=== PATIENT | female | born 1970 | race Caucasian/White ===

== ENCOUNTER 2017-04-03 15:27 | Observation (INO) | payer BC ==
[~2017-04-03] VITALS: Ht 165.1 cm; Wt 90.5 kg
[~2017-04-03 15:27] MED LIST: LEVO75TA5 PO; PRAV10TA39 PO
[2017-04-03] MEDS ORDERED: ALBUTEROL 0.5% NEB SOLN 2.5 MG/0.5 ML VIAL INH ONE (15:42)
[2017-04-03] MEDS ORDERED: DEXAMETHASONE **PF** INJ 10 MG/ML VIAL PO ONE (15:45)
[2017-04-03] MEDS ORDERED: ALBUT/IPRATROP 3MG/0.5MG NEB 3 ML VIAL INH STA ×3 (15:45→18:14)
[2017-04-03 16:08] LABS: BASO % 0.4 %; BASO ABS # 0.03 K/uL (0-0.2); COMPLETE YES; EOS % 5.1 %; HEMATOCRIT 46.5 % (37-47); IG% 0.4 %; LYMPH % 20.1 %; LYMPH ABS # 1.54 K/uL (1.2-3.4); MEAN CELL VOLUME 92.4 fL (80-100); MEAN CORPUSCULAR HEMOGLOBIN 32.2 pg (25-34); MEAN CORPUSCULAR HGB CONC 34.8 g/dl (32-36); MEAN PLATELET VOLUME 9.5 fL (7.4-10.4); MONO % 11.6 %; NEUT % 62.4 %; PLATELET COUNT 234 K/uL (130-400); RED BLOOD COUNT 5.03 M/uL (4.2-5.4); WHITE BLOOD COUNT 7.67 K/uL (4.8-10.8)
--- NOTE | 2017-04-03 16:10 | DIAGNOSTIC IMAGING REPORT ---
CHEST ONE VIEW PORTABLE HISTORY: EVALUATE RESPIRATORY DISTRESS.DYSPNEA COMPARISON: Chest 03/11/2013. FINDINGS: The lungs are clear. Cardiac silhouette is normal in size. No pleural effusions. No pneumothorax. IMPRESSION: No acute process. Electronically signed by: Ambrosio Penny M.D. 04/03/2017 4:09 PM Dictated Date/Time: 04/03/2017 4:06 PM
[2017-04-03 16:26] LABS: BUN/CREATININE RATIO 13.8 (10-20); CALCIUM 9.5 mg/dl (8.5-10.1); CREATININE 0.76 mg/dl (0.60-1.20)
[2017-04-03 16:29] LABS: ALB/GLOB RATIO 1.2 (0.9-2)
[2017-04-03] MEDS ORDERED: CHN/1 PO (16:33)
--- NOTE | 2017-04-03 19:22 | EMERGENCY ROOM VISIT NOTE ---
History Report prepared by Chepe: Kevin Cowan Under the Supervision of: Dr. Tony Ritchie M.D. First contact with patient: 15:40 Chief Complaint: SHORTNESS OF BREATH Stated Complaint: HARD TO BREATH History of Present Illness The patient is a 47 year old female who presents to the Emergency Room with complaints of shortness of breath that began 45 minutes ago. She was 88% on room air. At this time, the patient was cleaning a bathroom and had mixed Bleach with Comet Cleanser. She then suddenly became short of breath with a cough and chest tightness. Pt denies LOC, headache, fevers, chills, diaphoresis , visual changes, neck pain, chest pain, nausea, vomiting, abdominal pain, back pain, melena, hematochezia, urinary symptoms, numbness, weakness, lymphadenopathy, rash, or other complaints. She denies any recent trips. She denies any family history or past medical history. She denies any known medical history. Source of History: patient Onset: 45 minutes ago Position: other (Respiratory System) Symptom Intensity: 88% on room air Quality: other (Shortness of breath) Timing: constant Associated Symptoms: + cough Note: She is experiencing chest tightness. Review of Systems See HPI for pertinent positives and negatives. A total of ten systems were reviewed and were otherwise negative. Family History Patient reports no known family medical history. Social History Smoking Status: Current Every Day Smoker Smokeless Tobacco Use: No Drug Use: none Marital Status: Occupation Status: employed Current/Historical Medications Scheduled Varenicline (Chantix), 1 MG PO DIRECTED Allergies Coded Allergies: No Known Allergies (Unverified , 04/03/17) Physical Exam Vital Signs Date Time Temp Pulse Resp B/P (MAP) Pulse Ox O2 Delivery O2 Flow Rate FiO2 04/03/17 18:30 112/73 04/03/17 18:27 84 11 96 04/03/17 18:00 112/72 04/03/17 17:57 86 13 97 04/03/17 17:30 116/76 04/03/17 17:27 95 25 98 04/03/17 17:21 147/85 04/03/17 17:00 84 107/82 98 Nebulizer 10.0 04/03/17 17:00 107/82 04/03/17 16:58 86/74 04/03/17 16:57 89 26 94 04/03/17 16:27 87 17 93 04/03/17 16:15 74 99/84 99 Nebulizer 10.0 04/03/17 16:15 99/84 04/03/17 16:05 80 04/03/17 15:57 79 18 04/03/17 15:48 91 Nasal Cannula 2.0 04/03/17 15:40 89 Room Air 04/03/17 15:40 92 Nasal Cannula 2.0 04/03/17 15:29 36.5 87 28 131/83 87 Room Air Physical Exam GENERAL: Awake, alert, dyspneic well-appearing, in mild distress HENT: Normocephalic, atraumatic. Oropharynx unremarkable. EYES: Normal conjunctiva. Sclera non-icteric. NECK: Supple. No nuchal rigidity. FROM. No JVD. RESPIRATORY: Scattered wheezes and rhonchi bilaterally. CARDIAC: Regular rate, normal rhythm. Extremities warm and well perfused. Pulses equal. ABDOMEN: Soft, non-distended. No tenderness to palpation. No rebound or guarding. No masses. RECTAL: Deferred. MUSCULOSKELETAL: Chest examination reveals no tenderness. The back is symmetrical on inspection without obvious abnormality. There is no CVA tenderness to palpation. No joint edema. LOWER EXTREMITIES: Calves are equal size bilaterally and non-tender. No edema. No discoloration. NEURO: Normal sensorium. No sensory or motor deficits noted. SKIN: No rash or jaundice noted. Medical Decision & Procedures ER Provider Diagnostic Interpretation: Radiology results as stated below per my review and radiologist interpretation: CHEST ONE VIEW PORTABLE HISTORY: EVALUATE RESPIRATORY DISTRESS.DYSPNEA COMPARISON: Chest 03/11/2013. FINDINGS: The lungs are clear. Cardiac silhouette is normal in size. No pleural effusions. No pneumothorax. IMPRESSION: No acute process. Electronically signed by: Ambrosio Penny M.D. 04/03/2017 4:09 PM Dictated Date/Time: 04/03/2017 4:06 PM Laboratory Results 04/03/17 16:00 Red Blood Count 5.03, Mean Corpuscular Volume 92.4, Mean Corpuscular Hemoglobin 32.2, Mean Corpuscular Hemoglobin Concent 34.8, Mean Platelet Volume 9.5, Neutrophils (%) (Auto) 62.4, Lymphocytes (%) (Auto) 20.1, Monocytes (%) (Auto) 11.6, Eosinophils (%) (Auto) 5.1, Basophils (%) (Auto) 0.4, Neutrophils # (Auto ) 4.79, Lymphocytes # (Auto) 1.54, Monocytes # (Auto) 0.89, Eosinophils # (Auto ) 0.39, Basophils # (Auto) 0.03 04/03/17 16:00 Test 04/03/17 16:00 White Blood Count 7.67 K/uL (4.8-10.8) Red Blood Count 5.03 M/uL (4.2-5.4) Hemoglobin 16.2 g/dL (12.0-16.0) Hematocrit 46.5 % (37-47) Mean Corpuscular Volume 92.4 fL (80-100) Mean Corpuscular Hemoglobin 32.2 pg (25-34) Mean Corpuscular Hemoglobin Concent 34.8 g/dl (32-36) Platelet Count 234 K/uL (130-400) Mean Platelet Volume 9.5 fL (7.4-10.4) Neutrophils (%) (Auto) 62.4 % Lymphocytes (%) (Auto) 20.1 % Monocytes (%) (Auto) 11.6 % Eosinophils (%) (Auto) 5.1 % Basophils (%) (Auto) 0.4 % Neutrophils # (Auto) 4.79 K/uL (1.4-6.5) Lymphocytes # (Auto) 1.54 K/uL (1.2-3.4) Monocytes # (Auto) 0.89 K/uL (0.11-0.59) Eosinophils # (Auto) 0.39 K/uL (0-0.5) Basophils # (Auto) 0.03 K/uL (0-0.2) RDW Standard Deviation 42.5 fL (36.4-46.3) RDW Coefficient of Variation 12.6 % (11.5-14.5) Immature Granulocyte % (Auto) 0.4 % Immature Granulocyte # (Auto) 0.03 K/uL (0.00-0.02) Anion Gap 10.0 mmol/L (3-11) Est Creatinine Clear Calc Drug Dose 102.8 ml/min Estimated GFR () 109.0 Estimated GFR (Non- 94.1 BUN/Creatinine Ratio 13.8 (10-20) Calcium Level 9.5 mg/dl (8.5-10.1) Total Bilirubin 0.2 mg/dl (0.2-1) Aspartate Amino Transf (AST/SGOT) 13 U/L (15-37) Alanine Aminotransferase (ALT/SGPT) 20 U/L (12-78) Alkaline Phosphatase 97 U/L (45-117) Total Protein 7.7 gm/dl (6.4-8.2) Albumin 4.1 gm/dl (3.4-5.0) Globulin 3.6 gm/dl (2.5-4.0) Albumin/Globulin Ratio 1.2 (0.9-2) Laboratory results reviewed by me Medications Administered Medications (Trade) Dose Ordered Sig/Flower Route Start Time Stop Time Status Last Admin Dose Admin Albuterol Sulfate (Ventolin 0.5% 2.5MG/0.5ML Neb) 2.5 mg STK-MED ONCE INH 04/03/17 15:42 04/03/17 15:43 DC 04/03/17 16:03 2.5 MG Albuterol/ Ipratropium (Duoneb) 3 ml NOW STAT INH 04/03/17 15:45 04/03/17 15:47 DC 04/03/17 16:02 3 ML Dexamethasone Sodium Phosphate (Dexamethasone Inj Pf) 10 mg NOW ONCE PO 04/03/17 15:45 04/03/17 15:47 DC 04/03/17 16:02 10 MG Albuterol/ Ipratropium (Duoneb) 3 ml NOW STAT INH 04/03/17 16:51 04/03/17 16:52 DC 04/03/17 16:59 3 ML Albuterol/ Ipratropium (Duoneb) 3 ml NOW STAT INH 04/03/17 18:14 04/03/17 18:15 DC 04/03/17 18:14 3 ML ECG Indication: SOB/dyspnea Rate (beats per minute): 85 Rhythm: normal sinus Findings: no acute ischemic change, no ectopy ED Course 1540: The patient was evaluated in room A9. A complete history and physical exam was performed. 1542: Ordered Albuterol Sulfate 2.5 INH 1545: Ordered Dexamethasone Sodium Phosphate 10 mg PO, DuoNeb 3 ml INH 1651: Ordered DuoNeb 3 ml INH 1720: I reassessed the patient at this time. She is feeling better. Without nasal oxygen, her oxygen saturation is 97-98% with rest. She is not wheezing after her third nebulizer treatment. 1814: The patient was reassessed and was short of breath again. She was requiring supplemental oxygen. Shortness of breath was doubling present with minimal exertion. She was given a fourth nebulizer treatment. 1909: consultation made with internal medicine. Case was discussed. Patient will be evaluated for further management. Medical Decision Triage Nursing notes reviewed. The patient's presentation and history were concerning for respiratory difficulty. Etiologies such as inhalation injury, chemical pneumonitis, pneumonia, COPD, reactive airway disease, CHF, cardiac ischemia, pulmonary embolism, pneumothorax , musculoskeletal, infections, gastrointestinal, as well as others were entertained. The patient was evaluated after arrival. She was found to be hypoxic. The patient was using several cleaning products together. MSDS review did indicate potential chlorine gas liberation. This would be consistent with her presentation. The patient was given IV steroids and multiple nebulizer treatments. She required supplemental oxygen. She was still very dyspneic. She had peak flow measurement performed and these were suboptimal. She was observed for several hours in the emergency department and was still symptomatic with minimal exertion. I discussed additional treatment in the hospital and the patient and were in agreement. Consultation was made with internal medicine for further management. Medication Reconcilliation Current Medication List: was personally reviewed by me Blood Pressure Screening Patient's blood pressure: Elevated blood pressure Blood pressure disposition: Elevated BP felt to be situational Impression Primary Impression: SOB (shortness of breath) Additional Impressions: Reactive airway disease Chlorine inhalation lung injury Scribe Attestation The scribe's documentation has been prepared under my direction and personally reviewed by me in its entirety. I confirm that the note above accurately reflects all work, treatment, procedures, and medical decision making performed by me. Departure Information Dispostion Being Evaluated By Hospitalist Referrals Tien Ta Jr,D.O. (PCP) Patient Instructions My [facility] Health Problem Qualifiers
[2017-04-03] MEDS ORDERED: MAGNESIUM HYDROXIDE SUSP 30 ML UDC PO PRN (20:30)
[2017-04-03] MEDS ORDERED: ACETAMINOPHEN 325 MG TAB PO PRN (20:30)
[2017-04-03 21:46] VITALS: BP 104/67; PULSE 82; TEMP 36.5; O2SAT 94
[2017-04-03 22:00] VITALS: BP 104/67; PULSE 82; TEMP 36.5; O2SAT 94; Ht 165.1 cm; Wt 90.5 kg
[2017-04-03] MEDS ORDERED: AZITHROMYCIN IV 500 MG in DEXTROSE 5% 250ML 250 ML IV ONE (22:00)
--- NOTE | 2017-04-03 22:36 | History and Physical ---
History & Physical Date & Time of Service: Apr 03, 2017 at 22:36 Chief Complaint: Dyspnea, Exposure To Chemical Inhalation Primary Care Physician: Tien Ta Jr,D.O. History of Present Illness Source: patient This is a 47 yo f that is presenting to us after suffering from acute onset SOB this afternoon while she was cleaning and using bleach/ comet equipment or machinery cleaner. She that when she was cleaning it was a quick onset of shortness of breath and coughing ( non prod/ no hemoptysis). She did not have any chest pain/ discomfort or nausea with the SOB however did have some diaphoresis. She then came to the ED for evaluation and was hypoxic on arrival. She was treated with duoneb x 4 and after treatment the patient had improved O2 sat and chest tightness resolved. She continued to have SOB. She has a history of smoking and exposure to second hand smoke as a child. She has no history of diagnosis of COPD/ emphysema. She has no history of asthma. PERC 1 ( O2 sat < 95%), no history of DVT/ PE Past Medical/Surgical History Smoker Family History Patient reports no known family medical history. Social History Smoking Status: Current Every Day Smoker Smokeless Tobacco Use: No Alcohol Use: none Drug Use: none Marital Status: Housing status: lives with family Occupational Status: employed Immunizations History of Influenza Vaccine: Unknown History of Tetanus Vaccine?: Unknown History of Pneumococcal: Unknown History of Hepatitis B Vaccine: Unknown Multi-Drug Resistant Organisms History of MDRO: No Allergies Coded Allergies: No Known Allergies (Unverified , 04/03/17) Home Medications Scheduled Varenicline (Chantix), 1 MG PO DIRECTED Review of Systems Constitutional: No fever Eyes: No worsening of vision ENT: No hearing loss Respiratory: + cough, + shortness of breath, + dyspnea on exertion, + dyspnea at rest, No sputum, No wheezing, No hemoptysis Cardiovascular: No chest pain Abdomen: No pain, No nausea, No vomiting, No diarrhea, No constipation Musculoskeletal: No joint pain, No muscle pain Genitourinary - Female: No dysuria Neurologic: No weakness, No numbness/tingling, No balance problems Psychiatric: No depression symptoms Endocrine: No fatigue Hematologic / Lymphatic: No abnormal bleeding/bruising Integumentary: No rash Physical Exam Vital Signs Date Time Temp Pulse Resp B/P (MAP) Pulse Ox O2 Delivery O2 Flow Rate FiO2 12/1/17 21:46 36.5 82 18 104/67 (79) 94 2.0 04/03/17 21:07 93 115/84 94 04/03/17 21:00 93 115/84 94 Nasal Cannula 2.0 04/03/17 19:30 81 105/74 96 Room Air 04/03/17 18:30 112/73 04/03/17 18:27 84 11 96 04/03/17 18:00 112/72 04/03/17 17:57 86 13 97 04/03/17 17:30 116/76 04/03/17 17:27 95 25 98 04/03/17 17:21 147/85 04/03/17 17:00 84 107/82 98 Nebulizer 10.0 04/03/17 17:00 107/82 04/03/17 16:58 86/74 04/03/17 16:57 89 26 94 04/03/17 16:27 87 17 93 04/03/17 16:15 74 99/84 99 Nebulizer 10.0 04/03/17 16:15 99/84 04/03/17 16:05 80 04/03/17 15:57 79 18 04/03/17 15:48 91 Nasal Cannula 2.0 04/03/17 15:40 89 Room Air 04/03/17 15:40 92 Nasal Cannula 2.0 04/03/17 15:29 36.5 87 28 131/83 87 Room Air General Appearance: no apparent distress, + pertinent finding (SOB) Head: normocephalic, atraumatic Eyes: normal inspection ENT: normal ENT inspection Neck: supple Respiratory/Chest: no respiratory distress, no accessory muscle use, + decreased breath sounds (bilat bases), + pertinent finding (occasional coarse breath sound noted, deep breath causing cough) Cardiovascular: regular rate, rhythm, no murmur, normal peripheral pulses Abdomen/GI: normal bowel sounds, non tender, soft Back: normal inspection, no CVA tenderness Extremities/Musculoskelatal: normal inspection, no calf tenderness, no pedal edema, normal range of motion Neurologic/Psych: alert, normal mood/affect, oriented x 3 Skin: normal color, warm/dry, no rash Lymphatic: no adenopathy Diagnostics Laboratory Results Results Past 24 Hours Test 04/03/17 16:00 04/03/17 21:39 Range/Units White Blood Count 7.67 4.8-10.8 K/uL Red Blood Count 5.03 4.2-5.4 M/uL Hemoglobin 16.2 12.0-16.0 g/dL Hematocrit 46.5 37-47 % Mean Corpuscular Volume 92.4 80-100 fL Mean Corpuscular Hemoglobin 32.2 25-34 pg Mean Corpuscular Hemoglobin Concent 34.8 32-36 g/dl Platelet Count 234 130-400 K/uL Mean Platelet Volume 9.5 7.4-10.4 fL Neutrophils (%) (Auto) 62.4 % Lymphocytes (%) (Auto) 20.1 % Monocytes (%) (Auto) 11.6 % Eosinophils (%) (Auto) 5.1 % Basophils (%) (Auto) 0.4 % Neutrophils # (Auto) 4.79 1.4-6.5 K/uL Lymphocytes # (Auto) 1.54 1.2-3.4 K/uL Monocytes # (Auto) 0.89 0.11-0.59 K/uL Eosinophils # (Auto) 0.39 0-0.5 K/uL Basophils # (Auto) 0.03 0-0.2 K/uL RDW Standard Deviation 42.5 36.4-46.3 fL RDW Coefficient of Variation 12.6 11.5-14.5 % Immature Granulocyte % (Auto) 0.4 % Immature Granulocyte # (Auto) 0.03 0.00-0.02 K/uL Sodium Level 142 136-145 mmol/L Potassium Level 4.0 3.5-5.1 mmol/L Chloride Level 108 98-107 mmol/L Carbon Dioxide Level 24 21-32 mmol/L Anion Gap 10.0 3-11 mmol/L Blood Urea Nitrogen 10 7-18 mg/dl Creatinine 0.76 0.60-1.20 mg/dl Est Creatinine Clear Calc Drug Dose 102.8 ml/min Estimated GFR () 109.0 Estimated GFR (Non- 94.1 BUN/Creatinine Ratio 13.8 10-20 Random Glucose 93 70-99 mg/dl Calcium Level 9.5 8.5-10.1 mg/dl Total Bilirubin 0.2 0.2-1 mg/dl Aspartate Amino Transf (AST/SGOT) 13 15-37 U/L Alanine Aminotransferase (ALT/SGPT) 20 12-78 U/L Alkaline Phosphatase 97 45-117 U/L Total Protein 7.7 6.4-8.2 gm/dl Albumin 4.1 3.4-5.0 gm/dl Globulin 3.6 2.5-4.0 gm/dl Albumin/Globulin Ratio 1.2 0.9-2 D-Dimer 410 0-500 ug/L FEU Diagnostic Radiology CHEST ONE VIEW PORTABLE HISTORY: EVALUATE RESPIRATORY DISTRESS.DYSPNEA COMPARISON: Chest 03/11/2013. FINDINGS: The lungs are clear. Cardiac silhouette is normal in size. No pleural effusions. No pneumothorax. IMPRESSION: No acute process. EKG Normal sinus rhythm Possible Left atrial enlargement Borderline ECG When compared with ECG of 11-MAR-2013 12:20, No significant change was found Impression Assessment and Plan This is a 47 yo f that is presenting to us with acute onset shortness of breath with a history of smoking. Patient could be suffering from a reaction to the inhalants however considering the PERC score and that 20% of COPD exacerbations without source could be secondary to PE a D Dimer was completed. Fortunately negative making it unlikely patient is suffering from PE Acute dyspnea/ hypoxic respiratory failure secondary to exposure to chemical - Med surg admission - Pulmicort BID ( did receive 10 mg of Decadron in ED) - Duoneb qid R - question an atypical PNA, cover with Azithro Smoking cessation - continue Varenecline - smoking cessation counselling - consider outpt PFT DVT prophylaxis - SCD Attending addendum: I have physically seen this patient, have supervised the medical residents activities, and agree with the H&P unless as otherwise noted. Assessment and Plan: Acute respiratory failure with hypoxia secondary to inhaled chlorinated cleaning compounds at home-- Admit to MedSurg. Advised to avoid future use of the same or similar cleaning products unless in a well ventilated area. Received Decadron 10 mg by mouth in the ED, albuterol nebulizer 1, and duonebs 3. Place on Pulmicort 0.5 mg inhaled twice a day. Duonebs every 4 hours while awake and every 2 hours when necessary. Chest x-ray suggestive of atypical process versus pneumonitis, we'll therefore place on azithromycin IV. Tobacco use disorder-- Tobacco cessation counseling Continue Varenicline. Level of Care Med/Surg Advanced Directives Existing Advance Directive: No Existing Living Will: No Existing Power of Supervisor Of Communications: No Resuscitation Status FULL RESUSCITATION VTE Prophylaxis VTE Risk Assessment Done? Y/N: Yes Risk Level: Moderate Given or contraindicated: SCD's Social Service Consult None Apply Note Total Time: Critical Care 30 - 74 minutes Additional Copies To Tien Ta Jr, D.O.
[2017-04-03 23:31] VITALS: BP 104/64; PULSE 76; TEMP 36.4; O2SAT 93
[2017-04-03] MEDS ORDERED: IV FLUIDS COMPLETED PRN (23:45)
[2017-04-04 07:33] VITALS: BP 97/60; PULSE 72; TEMP 36.6; O2SAT 97
[2017-04-04] MEDS: ALBUT/IPRATROP 3MG/0.5MG NEB 3 ML VIAL INH SCH ×3 (07:34→15:24)
[2017-04-04 07:46] VITALS: PULSE 77; O2SAT 96
[2017-04-04 08:00] VITALS: O2SAT 96
[2017-04-04] MEDS ORDERED: BUDESONIDE 90 MCG INH INH SCH ×2 (08:00)
[2017-04-04] MEDS ORDERED: VARENICLINE (CHANTIX) 1 MG TAB PO SCH (08:00)
[2017-04-04 11:37] VITALS: PULSE 77; O2SAT 98
[2017-04-04 14:24] VITALS: BP 97/60; PULSE 77; TEMP 36.6; O2SAT 98
[2017-04-04] MEDS ORDERED: PRED10TA PO (14:33)
[2017-04-04] MEDS ORDERED: VNTHFA/IN INH (14:33)
--- NOTE | 2017-04-04 14:35 | Discharge Instructions ---
Discharge Instructions Date of Service Apr 04, 2017. Admission Reason for Admission: Dyspnea, Exposure To Chemical Inhalation Discharge Discharge Diagnosis / Problem: re active air way disease with allergic spasm due to chemical exposure Discharge Goals Goal(s): Decrease discomfort Activity Recommendations Activity Limitations: resume your previous activity Lifting Limitations: none . Current Hospital Diet Patient's current hospital diet: Regular Diet Discharge Diet Recommended Diet: Regular Diet Pending Studies Studies pending at discharge: no Medical Emergencies . Who to Call and When: Medical Emergencies: If at any time you feel your situation is an emergency, please call 911 immediately. . Non-Emergent Contact Non-Emergency issues call your: Primary Care Provider, Cutting Machine Tender Helper Call Non-Emergent contact if: you have a fever, your pain is not controlled . . "Provider Documentation" section prepared by Diogenes Jeffrey. . VTE Core Measure Inpt VTE Proph given/why not?: SCD's
[2017-04-04 15:25] VITALS: PULSE 97; O2SAT 97
--- NOTE | 2017-04-04 17:02 | Discharge Summary ---
Discharge Summary Date of Service Apr 04, 2017. Discharge Summary Admission Date: Apr 03, 2017 at 20:33 Discharge Date: Apr 04, 2017 Discharge Disposition: Home Principal Diagnosis: acute hypoxic respiratory failure secondary to reactive airway disease Problems/Secondary Diagnoses: Acute hypoxic respiratory failure secondary to below Reactive airway spasm secondary to exposure to chemical Possible new diagnosis of COPD Tobacco abuse Immunizations: Have You Had Influenza Vaccine: Unknown History of Tetanus Vaccine?: Unknown History of Pneumococcal: Unknown History of Hepatitis B Vaccine: Unknown Medication Reconciliation New Medications: Albuterol Hfa (Ventolin Hfa) 200 Puffs/26317 Mcg Aers 2-4 PUFFS INH Q6H, #1 INHALER Prednisone Tab (Prednisone) 10 Mg Tab 10 MG PO BLANK for 4 Days, #10 TAB take 4 tablets day # 1 take 3 tablets day # 2 take 2 tablets day # 3 take 1 tablets day # 4 then stop Continued Medications: Varenicline (Chantix) 1 Mg Tab 1 MG PO DIRECTED Discharge Exam Review of Systems: Constitutional: No fever, No chills, No sweats, No weight loss, No weakness , No fatigue, No problem reported Eyes: No worsening of vision, No eye pain, No redness, No discharge, No diplopia, No problem reported ENT: No hearing loss, No unusual epistaxis, No nasal symptoms, No sore throat, No tinnitus, No dental problems, No trouble swallowing, No problem reported Respiratory: No cough, No sputum, No wheezing, No shortness of breath, No dyspnea on exertion, No dyspnea at rest, No hemoptysis, No problem reported Cardiovascular: No chest pain, No orthopnea, No PND, No edema, No claudication, No palpitations, No problem reported Abdomen: No pain, No nausea, No vomiting, No diarrhea, No constipation, No GI bleeding, No problem reported Musculoskeletal: No joint pain, No muscle pain, No swelling, No calf pain, No problem reported Genitourinary - Female: No dysuria, No urinary frequency, No urinary urgency , No urinary incontinence, No urinary retention, No hematuria, No dysmenorrhea, No menorrhagia, No metrorrhagia, No rash, No vaginal bleeding, No vaginal discharge, No vaginal itching, No vulvodynia, No , No problem reported Genitourinary - Male: No hematuria, No dysuria, No urinary frequency, No urinary urgency, No urinary hesitancy, No urinary retention, No urinary incontinence, No penile discharge, No lesions, No impotence, No problem reported Neurologic: No memory loss, No paralysis, No weakness, No numbness/tingling , No vertigo, No balance problems, No problem reported Psychiatric: No depression symptoms, No anhedonism, No anxiety, No insomnia , No substance abuse, No problem reported Endocrine: No fatigue, No excessive thirst, No excessive urination, No problem reported Hematologic / Lymphatic: No abnormal bleeding/bruising, No clotting problems , No swollen lymph nodes, No night sweats, No problem reported Integumentary: No rash, No itch, No new/changing skin lesions, No color change, No bleeding, No problem reported Physical Exam: General Appearance: WD/WN, no apparent distress Eyes: normal inspection, EOMI ENT: normal ENT inspection, hearing grossly normal Neck: supple Respiratory/Chest: chest non-tender, lungs clear, normal breath sounds, no respiratory distress, no accessory muscle use Cardiovascular: regular rate, rhythm, no edema, no gallop, no JVD, no murmur , normal peripheral pulses Abdomen / GI: normal bowel sounds, non tender, soft, no organomegaly, no pulsatile mass Extremities: normal inspection, no calf tenderness, normal capillary refill , no pedal edema, normal range of motion Neurologic/Psychiatric: assistant guest services manager II-XII nml as tested, no motor/sensory deficits , alert, normal mood/affect, normal reflexes, oriented x 3 Skin: normal color, warm/dry, no rash Hospital Course 47 years old female who was active smoker presented to the ED with severe shortness of breath with hypoxia after exposure to bleach fumes. Patient was admitted to telemetry giving supplemental oxygen. D-dimer was negative Chest x-ray was negative Patient was started on bronchodilators/steroids Today patient feels good, no shortness of breath Oxygen saturation on wrist and on ambulation is normal Patient wants to go home, she was instructed to follow up with landscape photographer for pulmonary function test as an outpatient and to quit smoking. Total Time Spent: Greater than 30 minutes This includes examination of the patient, discharge planning, medication reconciliation, and communication with other providers. Discharge Instructions Please refer to the electronic Patient Visit Report (Discharge Instructions) for additional information.
[2017-04-04] MEDS ORDERED: AZITHROMYCIN IV 250 MG in DEXTROSE 5% 250ML 250 ML IV SCH (20:00)
== END 2017-04-04 15:55 | disposition home or self-care (01) ==
LOC: C.EDB 15:27 → C.MS4W 20:33 → ENRESERV 20:50
PROVIDERS: ADMIT Hospitalist; ATTEND Hospitalist
DX: T59.891A Toxic effect of other specified gases, fumes and vapors, accidental (unintentional), initial encounter (principal); R06.02 Shortness of breath; X58.XXXA Exposure to other specified factors, initial encounter; J45.909 Unspecified asthma, uncomplicated; F17.210 Nicotine dependence, cigarettes, uncomplicated

== ENCOUNTER → 2017-09-05 | Outpatient (CLI) | payer OTHER ==
[~2017-09-05] MED LIST changes: +CHN/1 PO; -LEVO75TA5 PO; -PRAV10TA39 PO; +VNTHFA/IN INH
== END | disposition home or self-care (01) ==
LOC: C.LAB 08:43
DX: E78.5 Hyperlipidemia, unspecified (principal); E03.9 Hypothyroidism, unspecified

== ENCOUNTER 2019-05-14 09:12 | Inpatient (IN) ==
[2019-05-14] MEDS ORDERED: SODIUM CHLORIDE 0.9% 1000ML 1,000 ML IV ONE (09:45)
[2019-05-14] MEDS ORDERED: ONDANSETRON INJ 2 MG/ML 2 ML VIAL IV STA (09:45)
[2019-05-14 10:24] LABS: Basophils # (auto) 0.02 K/uL (0-0.2); Basophils % (auto) 0.1 %; Eosinophils % (auto) 4.1 %; Hematocrit (blood only) 47.9 % (37-47); Hemoglobin 16.9 g/dL (12.0-16.0); Immature Granulocytes # (auto) 0.09 K/uL (0.00-0.02); Immature Granulocytes % (auto) 0.6 %; Lymphocytes # (auto) 2.29 K/uL (1.2-3.4); Lymphocytes % (auto) 15.7 %; Mean Corpuscular Hemoglobin 31.3 pg (25-34); Mean Corpuscular Hgb Conc 35.3 g/dL (32-36); Mean Corpuscular Volume 88.7 fL (80-100); Mean Platelet Volume 10.2 fL (7.4-10.4); Monocytes # (auto) 0.41 K/uL (0.11-0.59); Monocytes % (auto) 2.8 %; Neutrophils # (auto) 11.19 K/uL (1.4-6.5); Neutrophils % (auto) 76.7 %; Platelet Count 291 K/uL (130-400); RDW Coefficient of Variation 12.5 % (11.5-14.5)
[2019-05-14 10:41] LABS: Albumin Level 4.1 gm/dl (3.4-5.0); BUN Creatinine Ratio 18.5 (10-20); Calcium 9.9 mg/dl (8.5-10.1); Creatinine Clr Calc Pharmacy 75.6 ml/min; Est GFR (African American) 64.5; Est GFR (Non-African American) 55.6; Potassium 3.4 mmol/L (3.5-5.1)
[2019-05-14 10:44] LABS: Albumin Globulin Ratio 1.2 (0.9-2); Bilirubin,Total 0.5 mg/dl (0.2-1); Globulin 3.5 gm/dl (2.5-4.0); Total Protein 7.6 gm/dl (6.4-8.2)
[2019-05-14 10:55] LABS: Appearance Urine Cloudy (Clear); Bacteria Urine Automated 1+ (Negative); Blood Urine Negative (Negative); Color Urine Dark Yellow; Epithelial Cell Urine Auto >30 /lpf (0-5); Glucose Urine UA Negative (Negative); Leukocyte Esterase Urine Trace (Negative); Nitrite Urine Negative (Negative); Protein Urine 1+ (Negative); Specific Gravity Urine 1.035 (1.000-1.030); Urobilinogen Urine Negative (Negative); pH Urine 6.5 (4.5-7.5)
[2019-05-14 10:58] LABS: Ketones Urine 4+ (Negative)
[2019-05-14 11:00] LABS: Bilirubin Urine Negative (Negative); Ictotest Urine Negative (Negative)
[2019-05-14 11:04] LABS: Pregnancy Test, Urine Negative (Negative)
[2019-05-14 11:18] LABS: Mucus Urine Present (None Prsent); RBC Urine Automated 0-4 /hpf (0-4)
[2019-05-14 11:22] LABS: Amphetamines+Metham, Urine Neg (Neg); Barbiturates, Urine Neg (Neg); Benzodiazepine, Urine Neg (Neg); Cocaine, Urine Neg (Neg); MDMA (Ecstacy), Urine Pos (Neg); Methadone, Urine Neg (Neg); Opiate, Urine Neg (Neg); Phencyclidine, Urine Neg (Neg)
[2019-05-14] MEDS ORDERED: IOVERSOL 100ml IV PRN (11:28)
[2019-05-14 11:36] LABS: Acetaminophen < 2 ug/ml (10-30); Salicylate < 1.7 mg/dl (2.8-20)
[2019-05-14] MEDS ORDERED: POTASSIUM CHLORIDE / WTR 10 MEQ/100 ML PLCT IV ONE (11:43)
--- NOTE | 2019-05-14 11:50 | CT Scan Report ---
HEAD CT NONCONTRAST CT DOSE: 1970.61 mGy.cm HISTORY: diffuse weakness, decreased responsiveness TECHNIQUE: Multiaxial CT images of the head were performed without the use of intravenous contrast. A utomated exposure control was utilized for this study. A dose lowering technique was utilized adheri ng to the principles of ALARA. Comparison: None. Findings: The paranasal sinuses and mastoid air cells are clear. The calvarium and skull base are int act. The ventricles and sulci are within normal limits. There is no mass, hematoma, midline shift, or acute infarct. Impression: No acute intracranial abnormality. ACT 112: Negative or not required by law. Electronically signed by: Ambrosio Penny M.D. 05/14/2019 11:49 AM
--- NOTE | 2019-05-14 11:56 | CT Scan Report ---
ABDOMEN AND PELVIS CT WITH IV CONTRAST CT DOSE: HISTORY: upper ab pain, vomiting TECHNIQUE: Multiaxial CT images of the abdomen and pelvis were performed following the use of intrave nous contrast. A dose lowering technique was utilized adhering to the principles of ALARA. COMPARISON STUDY: Abdomen and pelvis CT 07/22/2018. FINDINGS: There is a 2 mm nodule within the base of the left lower lobe on image 71. This is of doubt ful clinical significance. No pneumoperitoneum. No pneumatosis. No fractures within the visualized os seous structures. The heart is normal in size. Severe hepatic steatosis is again noted. This is not s ignificantly changed. The gallbladder, spleen, adrenal glands, pancreas, and right kidney are unremar kable. There is a 6 mm hypodense lesion within the left kidney. This is technically too small to noe acterize but favors a cyst. This has slightly increased in size compared to prior study when it measu red 4 mm. No hydronephrosis. No retroperitoneal lymphadenopathy. Abnormal thickening throughout the m ajority of the small bowel most pronounced within the jejunum with surrounding mild inflammatory millan ge. This is consistent with an enteritis. This favors an inflammatory/infectious process. Trace ascit es. The bladder is unremarkable. The uterus is surgically absent. A few colonic diverticula. No evide nce for diverticulitis. No bowel obstruction. Normal appendix. Fluid-filled colon. The major mesenter ic vessels are patent. IMPRESSION: 1. Abnormal thickening throughout the majority of the small bowel most pronounced within the jejunum with surrounding mild inflammatory change. This is consistent with an enteritis. This favors an infla mmatory/infectious process. 2. Trace ascites. 3. Normal appendix. 4. Hepatic steatosis. ACT 112: Negative or not required by law. Electronically signed by: Ambrosio Penny M.D. 05/14/2019 11:55 AM
[2019-05-14] MEDS ORDERED: SODIUM CHLORIDE 0.9% 500 ML IV SCH (12:15)
[2019-05-14] MEDS ORDERED: MoRPHine SULFATE 4 MG/ML 1 ML CARP\\VIAL IV STA (12:19)
--- NOTE | 2019-05-14 12:28 | Emergency Department Note ---
Entered by Zulay Rowe acting as a scribe for Russ Guerin MD History of Present Illness General Chief complaint: Abdominal Pain Time Seen by Provider: 05/14/19 09:33 Source: patient History of Present Illness Onset (ago): day(s) (this morning) Location: abdomen Pain Consistency: + other (episode) Current Pain Intensity: 9 Associated symptoms: + denies other symptoms (recent falls, recent head injuries), + nausea/vomiting and + other (diarrhea, numbness in extremities) The patient is a 49 year old female w/ PMHx hysterectomy, hypothyroidism, D & C, sinus surgery, endometrial ablation, GERD, colon polyps, HLD, and migraines who presents to the ED w/ CC of an episode of abdominal pain starting this morning. The patients states that last night they were finishing cleaning out their second home that they are trying to sell. He states that their son used to live in it, but their son has not talked to them since before [place] and they have not seen their granddaughter since then as well. He states that he took furniture down and when he came back to the house, she was slumped over the banister on the porch. The patients states that when he asked his friends what happened, they said that she was in her granddaughters bedroom and came out saying that she was nauseous. He states that he went over to talk to her and she just said that her stomach didnt feel well. He reports that one of their friends offered to take her down to go to bed and as soon as they did, she started vomiting. The patients reports that when he got home at 12:30 AM she was sleeping and fine. He reports that he heard her get up at 2:30 AM this morning and when she came back to bed, she said she was feeling fine besides her throat hurting from vomiting. He states that at 7 AM he woke her up to see if she wanted toast, which she said sounded good. He reports that while eating they were discussing his plans to go to [employer] and her plans to clean the house since they had company coming over. He states that when he got in the shower, he heard her vomiting again. He reports that she now had diarrhea, too. The patients states that at this time she started complaining of abdominal pain that she rated as a 9/10 in severity. He reports that she still told him to go to [place] and so he went to let the dogs out before he left. He states that when he came back in she was screaming for help. He reports that she said her extremities were numb and when he asked her to squeeze his hand, she couldnt. He states that he asked her if she wanted an ambulance and she said yes, which he reports is very unlike her. The patients states that he then laid her down on the couch and she has been the way she is now since then. He notes that she had a really bad episode of depression 6 years ago when their son did a similar thing and she had a nervous breakdown. He reports that she developed ulcers as well at that time so he is unsure if that may be what it is. The patients denies the patient having a history of strokes, recent falls, and recent head injuries. Home Medications Home Medications Medication Instructions Recorded Confirmed Type furosemide 40 mg PO QAM 07/22/18 05/14/19 History meclizine 25 mg PO TID PRN #14 tab 07/23/18 05/14/19 Rx cholecalciferol (vitamin D3) 125 5,000 units PO DAILY tab 11/24/18 05/14/19 History mcg (5,000 unit) tablet loratadine 5 mg-pseudoephedrine ER 1 tab PO DAILY tab 11/24/18 05/14/19 History 120 mg tablet,extended release,12hr bupropion HCl 150 mg 24 hr tablet, 150 mg PO QAM 12/28/18 05/14/19 History extended release fluoxetine 10 mg capsule 10 mg PO DAILY 04/21/19 05/14/19 History diclofenac sodium 1 % TOPICAL DIRECTED 05/14/19 05/14/19 History doxylamine succinate [Sleep Aid 25 mg PO HS PRN 05/14/19 05/14/19 History (doxylamine)] multivitamin 1 tab PO DAILY 05/14/19 05/14/19 History Allergies Allergy/AdvReac Type Severity Reaction Status Date / Time statin Allergy Uncoded 05/14/19 09:45 Past Med/Surg History Medical History Aching pain GERD (gastroesophageal reflux disease) History of colon polyps Hyperlipidemia no meds Hypothyroidism Migraines Nausea and vomiting after administration of anesthetic agent Sleep apnea cpap Surgical History History of bilateral tubal ligation History of colonoscopy History of dilatation and curettage History of endometrial ablation History of endoscopic sinus surgery History of hysterectomy History of wisdom tooth extraction Family History Father Family history of reaction to anesthesia nausea and vomiting Family history of diabetes mellitus Family hx of colon cancer Colorectal cancer Hypertension Mother Family history of diabetes mellitus Grandfather Stroke Other Diabetes Prostate cancer Social History Preferred Language: Telugu Communication Ability: Effective Windows Mobile Developer Required: No Beliefs That Will Affect Care: None marital status: Current Living Situation: Spouse Feels Safe at Home: Yes Smoking Status: Former smoker Second Hand Exposure: Yes (mother smoked) ; Hx Alcohol Use: Yes Alcohol type: beer, wine and hard liquor Hx Substance Use: No Review of Systems See HPI for pertinent positives & negatives. and A total of 10 systems reviewed and were otherwise negative Physical Exam Vital Signs Vital Signs - 24 hr 05/14/19 09:18 05/14/19 09:29 05/14/19 09:30 Pulse Rate 55 L 55 L 54 L Pulse Rate [Apical] Pulse Rate from SpO2 Sensor 55 L 55 L Pulse Rhythm Regular Pulse Rhythm [Apical] Pulse Strength Normal Pulse Strength [Apical] Respiratory Rate 17 19 19 Respiratory Effort / Characteristics Non-Labored Spontaneous Respiratory Depth Normal Respiratory Pattern Regular Blood Pressure 126/92 141/85 H 141/85 H Blood Pressure [Right Radial Artery] Blood Pressure Mean 97 103 107 Blood Pressure Mean [Right Radial Artery] Blood Pressure Position Lying Blood Pressure Position [Right Radial Artery] Pulse Oximetry 99 98 98 Oxygen Delivery Method Room Air Sepsis Recent Fever Within 48 Hours No Sepsis New/Unexplained Change in Mental Status No Sepsis Action Taken by Nursing No Action Required 05/14/19 09:35 05/14/19 11:00 05/14/19 11:36 Pulse Rate 55 L Pulse Rate [Apical] 64 Pulse Rate from SpO2 Sensor 56 L Pulse Rhythm Pulse Rhythm [Apical] Regular Pulse Strength Pulse Strength [Apical] Normal Respiratory Rate 12 16 Respiratory Effort / Characteristics Non-Labored Spontaneous Respiratory Depth Normal Respiratory Pattern Blood Pressure Blood Pressure [Right Radial Artery] 134/77 Blood Pressure Mean Blood Pressure Mean [Right Radial Artery] 96 Blood Pressure Position Blood Pressure Position [Right Radial Artery] Lying Pulse Oximetry 98 98 98 Oxygen Delivery Method Room Air Room Air Sepsis Recent Fever Within 48 Hours Sepsis New/Unexplained Change in Mental Status Sepsis Action Taken by Nursing GENERAL: Well nourished, non-toxic. EYE EXAM: Normal conjunctiva. PERRL, no anisocoria and EOM's grossly intact w/o pain. OROPHARYNX: Dry mucous membranes. Grossly normal dentition. NECK: Supple, no nuchal rigidity, no adenopathy, non-tender. No signs of meningismus. LUNGS: Clear to auscultation. Normal chest wall mechanics. HEART: NSR, no MRG. ABDOMEN: Abdomen soft, mild diffuse tenderness to palpation that localizes more the the upper abdomen, not peritonitic, normo-active bowel sounds, no masses, no rebound or guarding. BACK: No CVA TTP. SKIN: No rashes and no bruising. UPPER EXTREMITIES: Upper extremities are grossly normal. LOWER EXTREMITIES: No pitting edema. No calf pain. NEURO EXAM: Opens eyes to voice. Speaks softly, but understandable. Diffuse, but symmetric weakness bilateral upper extremities and lower extremities. Follows commands. Course 0938: The patient was evaluated in room A3. A complete history and physical exam was performed. 0940: Orders were placed and the patient was started on a hospital monitor at this time. 1146: I reevaluated the patient and updated her and her on her test results. Patient appears clinically improved is more awake alert conversational and looks well. No sensory deficits. I discussed the treatment plan with them. They verbally agree and understand. 1148: I discussed the patient's case with Wesley Palomares PA-C- [facility] [place] Hospitalist. He will evaluate the patient for further management under Dr. Arriaga's service. Administered Medications Potassium Chloride (K Horace / Wtr) 10 meq in 100 mls @ 100 mls/hr IV ONE ONE Stop: 05/14/19 12:42 Last Admin: 05/14/19 12:20 Dose: 100 mls/hr Documented by: [id number] Sodium Chloride (Nss) 500 mls @ 125 mls/hr IV .Q4H THOMPSON Stop: 06/13/19 12:14 Last Admin: 05/14/19 12:20 Dose: 125 mls/hr Documented by: [id number] Ioversol (Optiray 320 100ml) 93 ml IV ONCE PRN PRN Reason: Interaction Checking Stop: 05/18/19 11:27 Last Admin: 05/14/19 11:28 Dose: 93 ml Documented by: [id number] Discontinued Medications Sodium Chloride (Nss 1000ml) 1,000 mls @ 999 mls/hr IV .Q1H1M ONE Stop: 05/14/19 10:45 Last Infusion: 05/14/19 12:19 Dose: 0 mls/hr Documented by: [id number] Admin: 05/14/19 10:00 Dose: 999 mls/hr Documented by: [id number] Ondansetron HCl (Zofran) 4 mg IV NOW STA Stop: 05/14/19 09:46 Last Admin: 05/14/19 10:00 Dose: 4 mg Documented by: [id number] Medical Decision Making Differential Diagnosis Differential diagnoses includes but is not limited to gastritis, peptic ulcer disease, GERD, gallbladder disease, pancreatitis, small bowel obstruction, acute coronary syndrome, pericarditis, ischemic bowel, irritable bowel disease, irritable bowel syndrome, appendicitis, diverticulitis, malignancy, hernia, urinary tract infection, torsion, perforation, trauma, infectious, psychosomatic, conversion disorder. Medical Records Attestation: I reviewed the patient's medical records. Home Medications Current Medication List: was personally reviewed by me Laboratory Data Attestation: I reviewed the patient's lab results. Result diagrams: 05/14/19 10:03 05/14/19 10:03 Lab Results 05/14/19 05/14/19 05/14/19 Range/Units 10:03 10:03 10:03 WBC 14.60 H (4.8-10.8) K/uL RBC 5.40 (4.2-5.4) M/uL Hgb 16.9 H (12.0-16.0) g/dL Hct 47.9 H (37-47) % MCV 88.7 (80-100) fL MCH 31.3 (25-34) pg MCHC 35.3 (32-36) g/dL RDW Std Deviation 40.0 (36.4-46.3) fL RDW Coeff of Abhinav 12.5 (11.5-14.5) % Plt Count 291 (130-400) K/uL MPV 10.2 (7.4-10.4) fL Immature Gran % (Auto) 0.6 % Neut % (Auto) 76.7 % Lymph % (Auto) 15.7 % [place] % (Auto) 2.8 % Eos % (Auto) 4.1 % Baso % (Auto) 0.1 % Immature Gran # (Auto) 0.09 H (0.00-0.02) K/uL Neut # (Auto) 11.19 H (1.4-6.5) K/uL Lymph # (Auto) 2.29 (1.2-3.4) K/uL [place] # (Auto) 0.41 (0.11-0.59) K/uL Eos # (Auto) 0.60 H (0-0.5) K/uL Baso # (Auto) 0.02 (0-0.2) K/uL Sodium 141 (136-145) mmol/L Potassium 3.4 L (3.5-5.1) mmol/L Chloride 107 (98-107) mmol/L Carbon Dioxide 27 (21-32) mmol/L Anion Gap 8.0 (3-11) BUN 22 H (7-18) mg/dl Creatinine 1.16 (0.6-1.2) mg/dl Est Cr Clr Drug Dosing 75.6 ml/min Est GFR ( Amer) 64.5 Est GFR (Non-Af Amer) 55.6 BUN/Creatinine Ratio 18.5 (10-20) Glucose 170 H (70-99) mg/dl Calcium 9.9 (8.5-10.1) mg/dl Total Bilirubin 0.5 (0.2-1) mg/dl AST 21 (15-37) U/L ALT 36 (12-78) U/L Alkaline Phosphatase 121 H (45-117) U/L Total Protein 7.6 (6.4-8.2) gm/dl Albumin 4.1 (3.4-5.0) gm/dl Globulin 3.5 (2.5-4.0) gm/dl Albumin/Globulin Ratio 1.2 (0.9-2) Lipase 7804 H (73-393) U/L Urine Color Urine Appearance (Clear) Urine pH (4.5-7.5) Ur Specific [place] (1.000-1.030) Urine Protein (Negative) Urine Glucose (UA) (Negative) Urine Ketones (Negative) Urine Blood (Negative) Urine Nitrite (Negative) Urine Bilirubin (Negative) Urine Urobilinogen (Negative) Ur Leukocyte Esterase (Negative) Urine WBC (Auto) (0-5) /hpf Urine RBC (Auto) (0-4) /hpf U Hyaline Cast (Auto) (0-5) /lpf U Epithel Cells (Auto) (0-5) /lpf Urine Bacteria (Auto) (Negative) Ur Renal Epithelial Cell Urine Mucus (None Prsent) Urine Test (Negative) Salicylates < 1.7 L (2.8-20) mg/dl Urine Opiates Screen (Neg) Ur Methadone, Qual (Neg) Acetaminophen < 2 L (10-30) ug/ml Urine Barbiturates (Neg) Ur Phencyclidine (PCP) (Neg) U Amphetamin/Meth Scrn (Neg) MDMA (Ecstasy) Screen (Neg) U Benzodiazepines Scrn (Neg) Ur Cocaine Metabolite (Neg) U Marijuana (THC) Screen (Neg) Ethyl Alcohol mg/dL (0-3) mg/dl 05/14/19 05/14/19 05/14/19 Range/Units 10:09 10:35 10:35 WBC (4.8-10.8) K/uL RBC (4.2-5.4) M/uL Hgb (12.0-16.0) g/dL Hct (37-47) % MCV (80-100) fL MCH (25-34) pg MCHC (32-36) g/dL RDW Std Deviation (36.4-46.3) fL RDW Coeff of Abhinav (11.5-14.5) % Plt Count (130-400) K/uL MPV (7.4-10.4) fL Immature Gran % (Auto) % Neut % (Auto) % Lymph % (Auto) % [place] % (Auto) % Eos % (Auto) % Baso % (Auto) % Immature Gran # (Auto) (0.00-0.02) K/uL Neut # (Auto) (1.4-6.5) K/uL Lymph # (Auto) (1.2-3.4) K/uL [place] # (Auto) (0.11-0.59) K/uL Eos # (Auto) (0-0.5) K/uL Baso # (Auto) (0-0.2) K/uL Sodium (136-145) mmol/L Potassium (3.5-5.1) mmol/L Chloride (98-107) mmol/L Carbon Dioxide (21-32) mmol/L Anion Gap (3-11) BUN (7-18) mg/dl Creatinine (0.6-1.2) mg/dl Est Cr Clr Drug Dosing ml/min Est GFR ( Amer) Est GFR (Non-Af Amer) BUN/Creatinine Ratio (10-20) Glucose (70-99) mg/dl Calcium (8.5-10.1) mg/dl Total Bilirubin (0.2-1) mg/dl AST (15-37) U/L ALT (12-78) U/L Alkaline Phosphatase (45-117) U/L Total Protein (6.4-8.2) gm/dl Albumin (3.4-5.0) gm/dl Globulin (2.5-4.0) gm/dl Albumin/Globulin Ratio (0.9-2) Lipase (73-393) U/L Urine Color Dark Yellow Urine Appearance Cloudy A (Clear) Urine pH 6.5 (4.5-7.5) Ur Specific [place] 1.035 H (1.000-1.030) Urine Protein 1+ H (Negative) Urine Glucose (UA) Negative (Negative) Urine Ketones 4+ H (Negative) Urine Blood Negative (Negative) Urine Nitrite Negative (Negative) Urine Bilirubin Negative (Negative) Urine Urobilinogen Negative (Negative) Ur Leukocyte Esterase Trace H (Negative) Urine WBC (Auto) 10-30 H (0-5) /hpf Urine RBC (Auto) 0-4 (0-4) /hpf U Hyaline Cast (Auto) 1-5 (0-5) /lpf U Epithel Cells (Auto) >30 H (0-5) /lpf Urine Bacteria (Auto) 1+ H (Negative) Ur Renal Epithelial Cell Not Reportable Urine Mucus Present A (None Prsent) Urine Test Negative (Negative) Salicylates (2.8-20) mg/dl Urine Opiates Screen (Neg) Ur Methadone, Qual (Neg) Acetaminophen (10-30) ug/ml Urine Barbiturates (Neg) Ur Phencyclidine (PCP) (Neg) U Amphetamin/Meth Scrn (Neg) MDMA (Ecstasy) Screen (Neg) U Benzodiazepines Scrn (Neg) Ur Cocaine Metabolite (Neg) U Marijuana (THC) Screen (Neg) Ethyl Alcohol mg/dL < 3.0 (0-3) mg/dl 05/14/19 Range/Units 10:35 WBC (4.8-10.8) K/uL RBC (4.2-5.4) M/uL Hgb (12.0-16.0) g/dL Hct (37-47) % MCV (80-100) fL MCH (25-34) pg MCHC (32-36) g/dL RDW Std Deviation (36.4-46.3) fL RDW Coeff of Abhinav (11.5-14.5) % Plt Count (130-400) K/uL MPV (7.4-10.4) fL Immature Gran % (Auto) % Neut % (Auto) % Lymph % (Auto) % [place] % (Auto) % Eos % (Auto) % Baso % (Auto) % Immature Gran # (Auto) (0.00-0.02) K/uL Neut # (Auto) (1.4-6.5) K/uL Lymph # (Auto) (1.2-3.4) K/uL [place] # (Auto) (0.11-0.59) K/uL Eos # (Auto) (0-0.5) K/uL Baso # (Auto) (0-0.2) K/uL Sodium (136-145) mmol/L Potassium (3.5-5.1) mmol/L Chloride (98-107) mmol/L Carbon Dioxide (21-32) mmol/L Anion Gap (3-11) BUN (7-18) mg/dl Creatinine (0.6-1.2) mg/dl Est Cr Clr Drug Dosing ml/min Est GFR ( Amer) Est GFR (Non-Af Amer) BUN/Creatinine Ratio (10-20) Glucose (70-99) mg/dl Calcium (8.5-10.1) mg/dl Total Bilirubin (0.2-1) mg/dl AST (15-37) U/L ALT (12-78) U/L Alkaline Phosphatase (45-117) U/L Total Protein (6.4-8.2) gm/dl Albumin (3.4-5.0) gm/dl Globulin (2.5-4.0) gm/dl Albumin/Globulin Ratio (0.9-2) Lipase (73-393) U/L Urine Color Urine Appearance (Clear) Urine pH (4.5-7.5) Ur Specific [place] (1.000-1.030) Urine Protein (Negative) Urine Glucose (UA) (Negative) Urine Ketones (Negative) Urine Blood (Negative) Urine Nitrite (Negative) Urine Bilirubin (Negative) Urine Urobilinogen (Negative) Ur Leukocyte Esterase (Negative) Urine WBC (Auto) (0-5) /hpf Urine RBC (Auto) (0-4) /hpf U Hyaline Cast (Auto) (0-5) /lpf U Epithel Cells (Auto) (0-5) /lpf Urine Bacteria (Auto) (Negative) Ur Renal Epithelial Cell Urine Mucus (None Prsent) Urine Test (Negative) Salicylates (2.8-20) mg/dl Urine Opiates Screen Neg (Neg) Ur Methadone, Qual Neg (Neg) Acetaminophen (10-30) ug/ml Urine Barbiturates Neg (Neg) Ur Phencyclidine (PCP) Neg (Neg) U Amphetamin/Meth Scrn Neg (Neg) MDMA (Ecstasy) Screen Pos H (Neg) U Benzodiazepines Scrn Neg (Neg) Ur Cocaine Metabolite Neg (Neg) U Marijuana (THC) Screen Neg (Neg) Ethyl Alcohol mg/dL (0-3) mg/dl Imaging Data Radiologist's Impression: Radiology results as stated below per my review and the radiologist's interpretation: HEAD CT NONCONTRAST CT DOSE: 1970.61 mGy.cm HISTORY: diffuse weakness, decreased responsiveness TECHNIQUE: Multiaxial CT images of the head were performed without the use of intravenous contrast. Automated exposure control was utilized for this study. A dose lowering technique was utilized adhering to the principles of ALARA. Comparison: None. Findings: The paranasal sinuses and mastoid air cells are clear. The calvarium and skull base are intact. The ventricles and sulci are within normal limits. There is no mass, hematoma, midline shift, or acute infarct. Impression: No acute intracranial abnormality. ACT 112: Negative or not required by law. Electronically signed by: Ambrosio Penny M.D. 05/14/2019 11:49 AM ABDOMEN AND PELVIS CT WITH IV CONTRAST CT DOSE: HISTORY: upper ab pain, vomiting TECHNIQUE: Multiaxial CT images of the abdomen and pelvis were performed following the use of intravenous contrast. A dose lowering technique was utilized adhering to the principles of ALARA. COMPARISON STUDY: Abdomen and pelvis CT 07/22/2018. FINDINGS: There is a 2 mm nodule within the base of the left lower lobe on image 71. This is of doubtful clinical significance. No pneumoperitoneum. No pneumatosis. No fractures within the visualized osseous structures. The heart is normal in size. Severe hepatic steatosis is again noted. This is not significantly changed. The gallbladder, spleen, adrenal glands, pancreas, and right kidney are unremarkable. There is a 6 mm hypodense lesion within the left kidney. This is technically too small to characterize but favors a cyst. This has slightly increased in size compared to prior study when it measured 4 mm. No hydronephrosis. No retroperitoneal lymphadenopathy. Abnormal thickening throughout the majority of the small bowel most pronounced within the jejunum with surrounding mild inflammatory change. This is consistent with an enteritis. This favors an inflammatory/infectious process. Trace ascites. The bladder is unremarkable. The uterus is surgically absent. A few colonic diverticula. No evidence for diverticulitis. No bowel obstruction. Normal appendix. Fluid-filled colon. The major mesenteric vessels are patent. IMPRESSION: 1. Abnormal thickening throughout the majority of the small bowel most pronounced within the jejunum with surrounding mild inflammatory change. This is consistent with an enteritis. This favors an inflammatory/infectious process. 2. Trace ascites. 3. Normal appendix. 4. Hepatic steatosis. ACT 112: Negative or not required by law. Electronically signed by: Ambrosio Penny M.D. 05/14/2019 11:55 AM ECG Data Attestation: I personally reviewed and interpreted this ECG as follows: Indication: abdominal pain Rate (beats per minute): 57 Rhythm: sinus bradycardia Findings: + other (normal [place] nad QRS, prolonged QT, T wave flattening in V2, normal axis); no ST depression and no ST elevation Comparison ECG Date: from (07/22/2018) Change: the following changes noted (QT is more prolonged compared to prior, there is no lionger a T wave abnormality inferiorly) Blood Pressure Blood Pressure Findings: Elevated blood pressure Blood Pressure Disposition: Referred to patients primary care provider MDM Narrative The patient is a 49 year old female w/ PMHx hysterectomy, hypothyroidism, D & C, sinus surgery, endometrial ablation, GERD, colon polyps, HLD, and migraines who presents to the ED w/ CC of an episode of abdominal pain starting this morning. Patient was seen and evaluated the bedside. The patient did present with acute onset of abdominal pain. The patient's does relate that this happened similar where she had some sort of nervous breakdown. He does relate that there have been some tense issues as the son is not speaking to her currently. He believes that this may be contributory. Patient has been having some vomiting and abdominal pain. He was concerned that the patient was having some numbness and tingling. The patient is able to feel on exam and is diffusely weak but does not have a focal deficit. Patient is able to speak comprehensible sentences. Patient does have mild diffuse abdominal pain but localized more to the upper abdomen. Patient did a blood work completed on CT abdomen pelvis CT of the head. Patient was given IV fluids and nausea medications. Patient's blood work shows concern for likely pancreatitis. The patient has no prior history of this. Last alcohol use over New Year's. Patient has not had any recent procedures or trauma. Lipase is greater than 7000. Dehydrated with some hypokalemia. Additional IV fluids were ordered in addition to pain medications. No further vomiting. CT of the head negative. CT abdomen pelvis shows enteritis. I did speak the on-call hospitalist who agreed to further evaluate treat the patient. Patient was subsequently admitted to the medicine service. Impression & Plan Pancreatitis, Dehydration, Hypokalemia, Enteritis, Nausea & vomiting Discharge Plan Visit Data Chief Complaint: Abdominal Pain ED Provider: Russ Guerin Discharge Problem: Pancreatitis, Dehydration, Hypokalemia, Enteritis, Nausea & vomiting Patient Disposition: Being Evaluated by Hospitalist Forms Stand Alone Forms: Call Back Authorization, [facility] Prescriptions Prescriptions: No Action cholecalciferol (vitamin D3) 5,000 unit tablet 5,000 units PO DAILY RF: 0 Claritin-D 12 Hour 5-120 mg tablet extended release 12 hr 1 tab PO DAILY RF: 0 bupropion HCl [Wellbutrin XL] 150 mg tablet extended release 24 hr 150 mg PO QAM RF: 0 fluoxetine [Prozac] 10 mg capsule 10 mg PO DAILY RF: 0 furosemide 40 mg tablet 40 mg PO QAM RF: 0 meclizine 25 mg tablet 25 mg PO TID PRN (Reason: dizziness) Qty: 14 RF: 0 multivitamin Tablet 1 tab PO DAILY RF: 0 Sleep Aid (doxylamine) 25 mg Tablet 25 mg PO HS PRN (Reason: Insomnia) RF: 0 diclofenac sodium 1 % gel 1 % TOPICAL DIRECTED RF: 0 Referrals Referrals: Radha Ray [Primary Care Provider] - Discharge Problem: Pancreatitis Qualifiers: Chronicity: acute Pancreatitis type: unspecified pancreatitis type Acute pancreatitis complication: unspecified Qualified Code(s): K85.90 - Acute pancreatitis without necrosis or infection, unspecified Nausea & vomiting Qualifiers: Vomiting type: unspecified Vomiting Intractability: non-intractable Qualified Code(s): R11.2 - Nausea with vomiting, unspecified The scribe's documentation has been prepared under my direction and personally reviewed by me in its entirety. I confirm that the note above accurately reflects all work, treatment, procedures, and medical decision making performed by me.
[2019-05-14] MEDS: LACTATED RINGER'S 1,000 ML IV SCH ×3 (13:13→23:21)
--- NOTE | 2019-05-14 13:29 | History & Physical Report ---
Date of Service May 14, 2019 Assessment & Plan (1) Acute pancreatitis: Patient with no evidence of pancreatitis or tumor on CT scan of the abdomen Lipase is over 7000 WBC 14,000 Patient is afebrile We will start patient on lactated Ringer's at 300 mL/h Repeat labs at 1800 today then daily in the morning Clear liquid diet (2) Enteritis: Patient afebrile but has a white count of 14,000 CT scan of the abdomen shows inflammation suggesting possibility of enteritis Patient with history of some nausea and vomiting and diarrhea over the last 2 to 3 days Check a procalcitonin with next set of labs Follow serial WBC (3) Hypokalemia: Patient received 1 rider of 10 mEq in the ED We will order additional 2 riders of 10 mEq when admitted Follow serial labs (4) Dehydration: Slight elevation in creatinine and BUN We will treat acute pancreatitis with 300 mL of lactated Ringer's hourly This should address the issue with dehydration Clinically does not present as dehydrated Follow serial labs (5) Madina's thyroiditis: Continue levothyroxine Check repeat TSH with reflex T4 and compared to March Further management outpatient (6) Obstructive sleep apnea: Patient's is asked to bring in patient's CPAP machine as she does not know settings Order placed for patient to use her own machine while inpatient (7) Impaired fasting glucose: Check a hemoglobin A1c Sliding scale insulin ordered Glycemic consult for monitoring (8) Depression: Continue home dose Wellbutrin and fluoxetine Talk screen with positive MDMA -this is most likely secondary to the bupropion (9) DVT prophylaxis: We will hold on chemical prophylaxis pending acute pancreatitis Ambulate as tolerated Please refer to Dr. Orosco's addendum and corrections for further recommendations History of Present Illness Primary Care Provider: Radha Ray Attending: Dr. 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 Patient reports that she has had increased nausea and vomiting with some diarrhea over the last 2 to 3 days. Pain got to the point where is burning in her epigastric region. CT scan of the abdomen and pelvis was completed and shows inflammatory change in the small bowel. Lipase was elevated to 7000 and white blood count was 14,000 however, no evidence of pancreatic inflammation or tumor on CT scan. Patient denies any history of diverticulitis or enteral dis ease. She states that she did have a prior HIDA scan which was negative but there was concern for cholecystitis. She does not follow with a physics technician. Previous work-up was with her former primary care physician Dr. Ta. The patient denies any blood in stool or urine. She has no further fever at this time. She has no difficulty with breathing or complaints of shortness of breath. She does use her CPAP machine on a regular basis but does not know her settings. Patient has a past medical history of smoking for approximately 46-wxlm-umin history and states that she quit smoking 2 years ago. Patient drinks ethanol socially only and has no other history of substance abuse or alcohol abuse history. Aside from her abdominal pain, patient has no acute complaints. Allergies Allergy/AdvReac Type Severity Reaction Status Date / Time statin Allergy Uncoded 05/14/19 09:45 Home Medications Home Medications Medication Instructions Recorded Confirmed Type furosemide 40 mg PO QAM 07/22/18 05/14/19 History meclizine 25 mg PO TID PRN #14 tab 07/23/18 05/14/19 Rx cholecalciferol (vitamin D3) 125 5,000 units PO DAILY tab 11/24/18 05/14/19 History mcg (5,000 unit) tablet loratadine 5 mg-pseudoephedrine ER 1 tab PO DAILY tab 11/24/18 05/14/19 History 120 mg tablet,extended release,12hr bupropion HCl 150 mg 24 hr tablet, 150 mg PO QAM 12/28/18 05/14/19 History extended release fluoxetine 10 mg capsule 10 mg PO DAILY 04/21/19 05/14/19 History diclofenac sodium 1 % TOPICAL DIRECTED 05/14/19 05/14/19 History doxylamine succinate [Sleep Aid 25 mg PO HS PRN 05/14/19 05/14/19 History (doxylamine)] multivitamin 1 tab PO DAILY 05/14/19 05/14/19 History Past Med/Surg History Medical History (Updated 05/14/19 @ 13:41 by Wesley Palomares PA-C) Aching pain Depression GERD (gastroesophageal reflux disease) History of colon polyps Hyperlipidemia no meds Hypothyroidism Migraines Nausea and vomiting after administration of anesthetic agent Obstructive sleep apnea Sleep apnea cpap Surgical History (Updated 05/14/19 @ 13:28 by Wesley Palomares PA-C) History of bilateral tubal ligation History of colonoscopy History of dilatation and curettage History of endometrial ablation History of endoscopic sinus surgery History of HIDA scan Negative study 08/17/2018 History of hysterectomy History of wisdom tooth extraction Family History Father Family history of reaction to anesthesia nausea and vomiting Family history of diabetes mellitus Family hx of colon cancer Colorectal cancer Hypertension Mother Family history of diabetes mellitus Grandfather Stroke Other Diabetes Prostate cancer Social History Preferred Language: Lebanese Communication Ability: Effective Buzzle Buffer Required: No Beliefs That Will Affect Care: None marital status: Current Living Situation: Family Other Information That Helps Us Care for You: No Feels Safe at Home: No Is there a partner from a previous relationship who is making you feel unsafe now?: No Any Concerns about Your Family Situation: No Would You Like to Speak to Someone About Your Situation: No Safety Concerns: Feels Safe At This Time Smoking Status: Former smoker Do You Dip or Chew Tobacco: No ; Second Hand Exposure: No ; Tobacco Cessation Education Requested by Patient: No Hx Alcohol Use: Yes Alcohol type: beer, wine and hard liquor Hx Substance Use: No Review of Systems Review of Systems: All systems reviewed & are unremarkable except as noted in HPI & below Physical Exam Physical Exam: GENERAL : No acute distress EYES: No icterus, gaze conjugate NOSE: No evidence of epistaxis MOUTH: No lesions or candidiasis NECK: Supple LUNGS: CTA B/L, no wheezes, rales or rhonchi HEART: Regular, rate controlled ABDOMEN: Soft, ND, BS Present. Exquisite tenderness in the mid epigastric region. No rebound tenderness. Patient does have guarding on exam. EXTREMITIES: No LE edema, pedal pulses intact and equal bilaterally NEURO: A&OX3. Strength equal and appropriate upper and lower extremities. Pupils equal round and reactive to light. Tongue is midline. No facial droop. Results & Data Vital Signs (Past 12 Hours) Vital Signs Pulse Pulse Resp BP BP Pulse Ox 05/14/19 13:16 71 16 133/95 97 05/14/19 12:30 76 19 135/99 05/14/19 12:00 62 14 133/83 96 05/14/19 11:36 64 16 134/77 98 05/14/19 11:00 55 L 12 98 05/14/19 09:35 98 05/14/19 09:30 54 L 19 141/85 H 98 05/14/19 09:29 55 L 19 141/85 H 98 05/14/19 09:18 55 L 17 126/92 99 Laboratory Results 05/14/19 10:03 05/14/19 10:03 Laboratory Tests 05/14/19 10:03 Lipase 7804 H Diagnostic Findings ABDOMEN AND PELVIS CT WITH IV CONTRAST CT DOSE: HISTORY: upper ab pain, vomiting TECHNIQUE: Multiaxial CT images of the abdomen and pelvis were performed following the use of intravenous contrast. A dose lowering technique was utilized adhering to the principles of ALARA. COMPARISON STUDY: Abdomen and pelvis CT 07/22/2018. FINDINGS: There is a 2 mm nodule within the base of the left lower lobe on image 71. This is of doubtful clinical significance. No pneumoperitoneum. No pneumatosis. No fractures within the visualized osseous structures. The heart is normal in size. Severe hepatic steatosis is again noted. This is not significantly changed. The gallbladder, spleen, adrenal glands, pancreas, and r ight kidney are unremarkable. There is a 6 mm hypodense lesion within the left kidney. This is technically too small to characterize but favors a cyst. This has slightly increased in size compared to prior study when it measured 4 mm. No hydronephrosis. No retroperitoneal lymphadenopathy. Abnormal thickening throughout the majority of the small bowel most pronounced within the jejunum with surrounding mild inflammatory change. This is consistent with an enteritis. This favors an inflammatory/infectious process. Trace ascites. The bladder is unremarkable. The uterus is surgically absent. A few colonic diverticula. No evidence for diverticulitis. No bowel obstruction. Normal appendix. Fluid-filled colon. The major mesenteric vessels are patent. IMPRESSION: 1. Abnormal thickening throughout the majority of the small bowel most pronounced within the jejunum with surrounding mild inflammatory change. This is consistent with an enteritis. This favors an inflammatory/infectious process. 2. Trace ascites. 3. Normal appendix. 4. Hepatic steatosis. ACT 112: Negative or not required by law. Electronically signed by: Ambrosio Penny M.D. 05/14/2019 11:55 AM Code Status & VTE Plan Code Status Full resuscitation VTE Prophylaxis Plan VTE Prophylaxis will be ordered: No Reason for no VTE drug order: Contraindicated Supervising Physician Co-Signing Physician Notes I personally examined the patient and verified all luke points of history and exam, discussed case, and agree with decision making with La ZAZUETA Nausea vomiting abdominal pain and diarrhea. Now feeling better. Would like to eat real fooddid well with a liquid diet. No further vomiting or diarrhea, still some abdominal pain but seems to be improving. In general she is awake and alert pleasant no distress. HEENT normocephalic atraumatic mucous membranes are moist. Breathing is unlabored no accessory muscle use good effort. Abdomen is soft may be mildly distended diffuse tender but actually not that much epigastrichave to push fairly hard epigastric to elicit any tendernessseems to be more diffusely tender, but nowhere is there guarding/rebound/rigidity. Labs and diagnostics reviewed Nausea vomiting abdominal pain diarrheamother was concern on pancreatitis due to her lipase, her clinical presentation, physical exam, and CT scan are more consistent with an infectious enteritismost likely viral given the etiology/prevalence in the community at this time. Tolerating clear liquid diet, seems to be improving, advance diet as tolerated, continue fluid for dehydration and supportive care. Continue supportive care otherwise. Repeat labs in the morning, repeat exam in the morning. Lipase more than likely elevated related to vomiting and bowel wall inflammation, rather than pancreatic process (again especially given CT scan and physical exam) Otherwise as above PG Care Time/CCT Total # of Minutes Spent Total Time Spent with Patient: Total time spent is greater than 50% in coordination of care (as documented) at patient's floor/unit and/or counseling patient: 60 minutes
[2019-05-14] MEDS ORDERED: GLUCOSE 40% GEL 15 GM TUBE PO PRN (13:32)
[2019-05-14] MEDS ORDERED: CARBOHYDRATES FOR HYPOGLYCEMIA PO PRN (13:32)
[2019-05-14] MEDS ORDERED: DEXTROSE 50% 50 ML SYRINGE IV PRN (13:32)
[2019-05-14] MEDS ORDERED: GLUCOSE 10 TABS/TUBE PO PRN (13:32)
[2019-05-14] MEDS ORDERED: GLUCAGON FOR INJ 1 MG VIAL SQ PRN (13:32)
[2019-05-14] MEDS ORDERED: POTASSIUM CHLORIDE 20 MEQ in LACTATED RINGER'S 1,000 ML IV SCH (14:09)
[2019-05-14] MEDS ORDERED: PHARMACY GLYCEMIC MGMT CONSULT PRN (14:31)
[2019-05-14] MEDS: POTASSIUM CHLORIDE / WTR 10 MEQ/100 ML PLCT IV SCH ×2 (15:01→16:05)
[2019-05-14] MEDS ORDERED: HYDROmorphone INJ 0.5 MG/0.5 ML SYR IV PRN (16:00)
[2019-05-14] MEDS ORDERED: INSULIN ASPART 100 UNITS/ML 3 ML PEN SC SCH (16:30)
[2019-05-14 18:10] LABS: Basophils # (auto) 0.03 K/uL (0-0.2); Basophils % (auto) 0.2 %; Eosinophils # (auto) 0.38 K/uL (0-0.5); Eosinophils % (auto) 2.8 %; Hemoglobin 13.1 g/dL (12.0-16.0); Immature Granulocytes # (auto) 0.05 K/uL (0.00-0.02); Immature Granulocytes % (auto) 0.4 %; Lymphocytes # (auto) 3.34 K/uL (1.2-3.4); Lymphocytes % (auto) 24.6 %; Mean Corpuscular Hgb Conc 34.5 g/dL (32-36); Mean Corpuscular Volume 89.8 fL (80-100); Mean Platelet Volume 9.9 fL (7.4-10.4); Monocytes # (auto) 0.45 K/uL (0.11-0.59); Monocytes % (auto) 3.3 %; Neutrophils # (auto) 9.33 K/uL (1.4-6.5); Neutrophils % (auto) 68.7 %; Platelet Count 244 K/uL (130-400); RDW Coefficient of Variation 12.7 % (11.5-14.5); RDW Standard Deviation 41.7 fL (36.4-46.3); Red Blood Count 4.23 M/uL (4.2-5.4); White Blood Count 13.58 K/uL (4.8-10.8)
[2019-05-14 18:26] LABS: BUN Creatinine Ratio 16.2 (10-20); Calcium 8.6 mg/dl (8.5-10.1); Creatinine Clr Calc Pharmacy 89.5 ml/min; Est GFR (African American) 79.1; Est GFR (Non-African American) 68.2; Potassium 3.3 mmol/L (3.5-5.1)
[2019-05-14 18:37] LABS: Thyroid Stimulating Hormone 2.52 uIu/ml (0.300-4.500)
[2019-05-14] MEDS: ONDANSETRON INJ 2 MG/ML 2 ML VIAL IV PRN (19:50)
[2019-05-15] MEDS: LACTATED RINGER'S 1,000 ML IV SCH ×4 (05:54→20:51)
--- NOTE | 2019-05-15 05:54 | Electrocardiogram Report ---
Test Reason : Blood Pressure : / mmHG Vent. Rate : 057 BPM Atrial Rate : 057 BPM P-R Int : 120 ms QRS Dur : 092 ms QT Int : 494 ms P-R-T Axes : 079 061 065 degrees QTc Int : 480 ms Sinus bradycardia Prolonged QT Abnormal ECG When compared with ECG of 22-JUL-2018 20:30, QT has lengthened Confirmed by Shashank Aden ([id number]) on 05/15/2019 5:54:24 AM Referred By: REFERRED SELF Confirmed By:Shashank Aden
[2019-05-15] MEDS: ACETAMINOPHEN 325 MG TAB PO PRN ×2 (05:56→11:58)
[2019-05-15 06:00] LABS: Basophils # (auto) 0.04 K/uL (0-0.2); Basophils % (auto) 0.4 %; Eosinophils # (auto) 1.49 K/uL (0-0.5); Eosinophils % (auto) 14.5 %; Hematocrit (blood only) 35.7 % (37-47); Hemoglobin 12.8 g/dL (12.0-16.0); Immature Granulocytes # (auto) 0.04 K/uL (0.00-0.02); Immature Granulocytes % (auto) 0.4 %; Lymphocytes # (auto) 3.22 K/uL (1.2-3.4); Lymphocytes % (auto) 31.3 %; Mean Corpuscular Hemoglobin 32.4 pg (25-34); Mean Corpuscular Hgb Conc 35.9 g/dL (32-36); Mean Corpuscular Volume 90.4 fL (80-100); Mean Platelet Volume 9.9 fL (7.4-10.4); Monocytes # (auto) 0.45 K/uL (0.11-0.59); Monocytes % (auto) 4.4 %; Neutrophils # (auto) 5.06 K/uL (1.4-6.5); Platelet Count 219 K/uL (130-400); RDW Coefficient of Variation 12.8 % (11.5-14.5); RDW Standard Deviation 42.1 fL (36.4-46.3); Red Blood Count 3.95 M/uL (4.2-5.4)
[2019-05-15 06:30] LABS: BUN Creatinine Ratio 14.9 (10-20); Calcium 8.2 mg/dl (8.5-10.1); Creatinine Clr Calc Pharmacy 99.7 ml/min; Est GFR (Non-African American) 77.7; Potassium 3.2 mmol/L (3.5-5.1)
[2019-05-15] MEDS: BuPROPion XL 150 MG TABCR PO SCH (08:43)
[2019-05-15] MEDS: FLUOXETINE HCL 10 MG CAP PO SCH (08:43)
[2019-05-15] MEDS: CHOLECALCIFEROL 1,000 UNITS TAB PO SCH (08:43)
[2019-05-15] MEDS: POTASSIUM CHLORIDE / WTR 10 MEQ/100 ML PLCT IV SCH ×3 (08:43→11:57)
[2019-05-15] MEDS ORDERED: Nursing to Pharmacy Communication ONE (09:15)
--- NOTE | 2019-05-15 09:36 | Hospitalist Progress Note ---
Date of Service May 15, 2019 Assessment & Plan (1) Enteritis: 49 yo F with PMH [place], Depression admitted for nausea and vomiting secondary to gastroenteritis. 1) Gastroenteritis - CT showed thickening of jejunum, no pancreatic involvement. - lipase 7000 on presentation in ER however improved to normal with LR fluid repletion - WBC WNL, procal WNL - continuing to have diarrhea; WBC stool and stool culture sent 2) Hypokalemia - K 3.2; repleted with K riders x 3 given patient's nausea 3) Depression - Continue home buproprion, sertraline 4) Madina Thyroiditis - TSH 2.52; no treatment necessary at this time 5) Impaired fasting glucose - awaiting A1c - SSI DVT ppx: up to ambulation as tolerated FEN/GI: LR @150 ml/Hr, no GI ppx Diet: Carb control Code Status: Full Code Supervising Physician Co-Signing Physician Notes I personally examined the patient and verified all luke points of history and exam, discussed case, and agree with decision making with Dr La. Still feeling lousy. Has not vomited but her stomach still hurts and she was not able to eat well today. She has had several episodes of diarrhea through the day. Watery earlier, may be a little bit more formed as the days progressed. In general she is awake and alert pleasant no distress. HEENT normocephalic atraumatic mucous membranes are moist. Breathing is unlabored no accessory muscle use good effort. Abdomen is soft may be mildly distended once again diffusely tender fortunately without guarding/rebound/rigidity. Nausea vomiting abdominal pain diarrheainitially there was concern on pancreatitis due to her lipase; however, her clinical presentation, physical exam, and CT scan are more consistent with an infectious enteritismost likely viral given the etiology/prevalence in the community at this time. The fact that she is not improving does start to back the question of a bacterial overgrowth or a lingering food poisoningbut at this point time she is not showing criteria to warrant antibiotic treatment. Stool studies sent and are pending, ongoing serial exams supportive care fluids and vigilance. Otherwise as above Subjective 49 yo F admitted last night for nausea, vomiting, diarrhea secondary to likely viral gastroenteritis. Has been experiencing diarrhea for the past week, denies any hematochezia, hematemesis, abnormal or new foods prior to admission. Appetite is poor however is able to somewhat keep down PO fluids and food. Review of Systems Constitutional: no fever, no chills, no body aches and no fatigue Respiratory: no cough and no dyspnea Cardiovascular: no chest pain, no dyspnea and no edema Gastrointestinal: + abdominal pain, + nausea, + vomiting and + diarrhea/loose stools; no constipation Genitourinary: no dysuria Physical Exam Constitutional: + ill appearing and cooperative; no acute distress Neck: normal visual inspection Respiratory: normal respiratory effort and able to speak in complete sentences; no respiratory distress, no labored breathing, no retractions, no cough and no audible wheezes Auscultation: lungs clear to auscultation bilaterally; no crackles, no rales, no rhonchi and no wheezes Cardiovascular: Rate/Rhythm: regular rate and regular rhythm Heart Sounds: normal S1 and normal S2; no gallop, no murmur and no cardiac rub Vessels: posterior tibial pulses present Extremities: no pedal edema and no edema Gastrointestinal (Abdomen): Inspection/Auscultation: abdomen normal to inspection and + hypoactive bowel sounds; abdomen not distended Percussion/Palpation: + abdomen tender and abdomen soft; no guarding, abdomen not rigid and no abdominal mass Tender to palpation in RUQ/RLQ. No tenderness at mcBurney's point. No single focal point of tenderness. Results & Data Vital Signs (Past 12 Hours) Vital Signs Temp Pulse Resp BP Pulse Ox 05/15/19 07:22 36.8 C 72 18 104/71 97 05/14/19 23:25 36.5 C 66 16 125/71 95 05/15/19 05/15/19 05/15/19 Range/Units 05:12 05:12 05:12 WBC 10.30 (4.8-10.8) K/uL RBC 3.95 L (4.2-5.4) M/uL Hgb 12.8 (12.0-16.0) g/dL Hct 35.7 L (37-47) % MCV 90.4 (80-100) fL MCH 32.4 (25-34) pg MCHC 35.9 (32-36) g/dL RDW Std Deviation 42.1 (36.4-46.3) fL RDW Coeff of Abhinav 12.8 (11.5-14.5) % Plt Count 219 (130-400) K/uL MPV 9.9 (7.4-10.4) fL Immature Gran % (Auto) 0.4 % Neut % (Auto) 49.0 % Lymph % (Auto) 31.3 % [place] % (Auto) 4.4 % Eos % (Auto) 14.5 % Baso % (Auto) 0.4 % Immature Gran # (Auto) 0.04 H (0.00-0.02) K/uL Neut # (Auto) 5.06 (1.4-6.5) K/uL Lymph # (Auto) 3.22 (1.2-3.4) K/uL [place] # (Auto) 0.45 (0.11-0.59) K/uL Eos # (Auto) 1.49 H (0-0.5) K/uL Baso # (Auto) 0.04 (0-0.2) K/uL Sodium 143 (136-145) mmol/L Potassium 3.2 L (3.5-5.1) mmol/L Chloride 112 H (98-107) mmol/L Carbon Dioxide 28 (21-32) mmol/L Anion Gap 3.0 (3-11) BUN 13 (7-18) mg/dl Creatinine 0.88 (0.6-1.2) mg/dl Est Cr Clr Drug Dosing 99.7 ml/min Est GFR ( Amer) 90.0 Est GFR (Non-Af Amer) 77.7 BUN/Creatinine Ratio 14.9 (10-20) Glucose 87 (70-99) mg/dl Estimat Average Glucose Pending Hemoglobin A1c Pending Calcium 8.2 L (8.5-10.1) mg/dl Triglycerides 117 (0-150) mg/dl Cholesterol 182 (0-200) mg/dl LDL Cholesterol, Calc 121 mg/dl VLDL Cholesterol, Calc 23 mg/dl HDL Cholesterol 38 mg/dl Cholesterol/HDL Ratio 5 Lipase 335 (73-393) U/L TSH (0.300-4.500) uIu/ml 05/14/19 05/14/19 Range/Units 17:48 17:48 WBC 13.58 H (4.8-10.8) K/uL RBC 4.23 (4.2-5.4) M/uL Hgb 13.1 D (12.0-16.0) g/dL Hct 38.0 (37-47) % MCV 89.8 (80-100) fL MCH 31.0 (25-34) pg MCHC 34.5 (32-36) g/dL RDW Std Deviation 41.7 (36.4-46.3) fL RDW Coeff of Abhinav 12.7 (11.5-14.5) % Plt Count 244 (130-400) K/uL MPV 9.9 (7.4-10.4) fL Immature Gran % (Auto) 0.4 % Neut % (Auto) 68.7 % Lymph % (Auto) 24.6 % [place] % (Auto) 3.3 % Eos % (Auto) 2.8 % Baso % (Auto) 0.2 % Immature Gran # (Auto) 0.05 H (0.00-0.02) K/uL Neut # (Auto) 9.33 H (1.4-6.5) K/uL Lymph # (Auto) 3.34 (1.2-3.4) K/uL [place] # (Auto) 0.45 (0.11-0.59) K/uL Eos # (Auto) 0.38 (0-0.5) K/uL Baso # (Auto) 0.03 (0-0.2) K/uL Sodium 142 (136-145) mmol/L Potassium 3.3 L (3.5-5.1) mmol/L Chloride 110 H (98-107) mmol/L Carbon Dioxide 29 (21-32) mmol/L Anion Gap 4.0 (3-11) BUN 16 (7-18) mg/dl Creatinine 0.98 (0.6-1.2) mg/dl Est Cr Clr Drug Dosing 89.5 ml/min Est GFR ( Amer) 79.1 Est GFR (Non-Af Amer) 68.2 BUN/Creatinine Ratio 16.2 (10-20) Glucose 115 H (70-99) mg/dl Estimat Average Glucose Hemoglobin A1c Calcium 8.6 (8.5-10.1) mg/dl Triglycerides (0-150) mg/dl Cholesterol (0-200) mg/dl LDL Cholesterol, Calc mg/dl VLDL Cholesterol, Calc mg/dl HDL Cholesterol mg/dl Cholesterol/HDL Ratio Lipase (73-393) U/L TSH 2.520 (0.300-4.500) uIu/ml Resident Activity Tracking Resident Involvement: Resident Care Provided Care Provided: Adult Hospital Medicine
[2019-05-15] MEDS: ONDANSETRON INJ 2 MG/ML 2 ML VIAL IV PRN (13:20)
--- NOTE | 2019-05-15 18:25 | Billing Data ---
Date of Service May 15, 2019 Coding Level of Care Code 06494 Subseq Hosp Care Lvl 3
[2019-05-16] MEDS: LACTATED RINGER'S 1,000 ML IV SCH ×2 (03:49→11:03)
[2019-05-16 06:15] LABS: Estimated Average Glucose 114 mg/dl; Hemoglobin A1C 5.6 % (4.5-5.6)
[2019-05-16 06:23] LABS: Basophils # (auto) 0.03 K/uL (0-0.2); Basophils % (auto) 0.4 %; Eosinophils # (auto) 1.37 K/uL (0-0.5); Eosinophils % (auto) 16.4 %; Hemoglobin 12.4 g/dL (12.0-16.0); Immature Granulocytes # (auto) 0.06 K/uL (0.00-0.02); Immature Granulocytes % (auto) 0.7 %; Lymphocytes # (auto) 2.81 K/uL (1.2-3.4); Lymphocytes % (auto) 33.6 %; Mean Corpuscular Hemoglobin 31.2 pg (25-34); Mean Corpuscular Hgb Conc 34.4 g/dL (32-36); Mean Corpuscular Volume 90.7 fL (80-100); Monocytes # (auto) 0.42 K/uL (0.11-0.59); Neutrophils # (auto) 3.67 K/uL (1.4-6.5); Neutrophils % (auto) 43.9 %; Platelet Count 211 K/uL (130-400); RDW Coefficient of Variation 12.7 % (11.5-14.5); RDW Standard Deviation 42.1 fL (36.4-46.3); Red Blood Count 3.97 M/uL (4.2-5.4); White Blood Count 8.36 K/uL (4.8-10.8)
[2019-05-16 06:59] LABS: BUN Creatinine Ratio 12.6 (10-20); Calcium 8.7 mg/dl (8.5-10.1); Creatinine Clr Calc Pharmacy 99.7 ml/min; Est GFR (Non-African American) 77.7; Potassium 3.5 mmol/L (3.5-5.1)
[2019-05-16] MEDS: FLUOXETINE HCL 10 MG CAP PO SCH (08:45)
[2019-05-16] MEDS: BuPROPion XL 150 MG TABCR PO SCH (08:45)
[2019-05-16] MEDS: CHOLECALCIFEROL 1,000 UNITS TAB PO SCH (08:46)
[2019-05-16] MEDS: ONDANSETRON INJ 2 MG/ML 2 ML VIAL IV PRN (12:56)
--- NOTE | 2019-05-16 15:09 | Discharge Summary ---
Date of Service May 16, 2019 Admission HPI Per Admitting Provider Attending: Dr. 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 Patient reports that she has had increased nausea and vomiting with some diarrhea over the last 2 to 3 days. Pain got to the point where is burning in her epigastric region. CT scan of the abdomen and pelvis was completed and shows inflammatory change in the small bowel. Lipase was elevated to 7000 and white blood count was 14,000 however, no evidence of pancreatic inflammation or tumor on CT scan. Patient denies any history of diverticulitis or enteral disease. She states that she did have a prior HIDA scan which was negative but there was concern for cholecystitis. She does not follow with a manager ed. Previous work-up was with her former primary care physician Dr. Ta. The patient denies any blood in stool or urine. She has no further fever at this time. She has no difficulty with breathing or complaints of shortness of breath. She does use her CPAP machine on a regular basis but does not know her settings. Patient has a past medical history of smoking for approximately [id number] history and states that she quit smoking 2 years ago. Patient drinks ethanol socially only and has no other history of substance abuse or alcohol abuse history. Aside from her abdominal pain, patient has no acute complaints. Admission Exam Per Admitting Provider GENERAL : No acute distress EYES: No icterus, gaze conjugate NOSE: No evidence of epistaxis MOUTH: No lesions or candidiasis NECK: Supple LUNGS: CTA B/L, no wheezes, rales or rhonchi HEART: Regular, rate controlled ABDOMEN: Soft, ND, BS Present. Exquisite tenderness in the mid epigastric region. No rebound tenderness. Patient does have guarding on exam. EXTREMITIES: No LE edema, pedal pulses intact and equal bilaterally NEURO: A&OX3. Strength equal and appropriate upper and lower extremities. Pupils equal round and reactive to light. Tongue is midline. No facial droop. Principal Diagnosis Viral Gastroenteritis Discharge Exam Constitutional WD/WN, vitals as above + obese and cooperative Eyes PERRL, conjunctivae normal, anicteric sclerae ENMT external ear and nose normal, oropharynx normal Neck normal visual inspection and trachea midline Respiratory normal respiratory effort, lungs clear to auscultation no cough Cardiovascular RRR, no murmur, no edema Heart Sounds: normal S1 and normal S2 Gastrointestinal (Abdomen) Inspection/Auscultation: abdomen normal to inspection and normal bowel sounds; abdomen not distended Percussion/Palpation: + abdomen tender (epigastrum) and abdomen soft; no guarding, no hepatomegaly, no splenomegaly and no abdominal mass Skin no rashes, warm and dry Neurologic No focal deficits Psychiatric A+Ox3, euthymic affect Discharge Data Allergies Allergy/AdvReac Type Severity Reaction Status Date / Time statin Allergy Uncoded 05/14/19 09:45 Consultations 05/14/19 11:48 ED Decision to Admit Stat Ordered Studies 05/14/19 09:45 CT abd pelvis IV con only Stat CT head/brain wo con Stat Hospital Course (1) Enteritis: Mrs. Garay is a 49 yo F with PMHx of gallbladder inflammation admitted for evaluation of nausea/vomiting and diarrhea thought to be secondary to a viral gastroenteritis. 1) Viral Gastroenteritis Mrs. Garay's WBC was elevated to 14 and her lipase level was elevated to 7808 on admission, thus her GI distress was initially thought to be due to pancreatitis. However, with fluid resuscitation, her lipase level quickly normalized. CT scan of abdomen and pelvis showed thickening of jejunum consistent with inflammatory state, without pancreatic inflammation/masses or gallbladder stones/inflammation. Procalcitonin was normal throughout hospital stay, and stool studies were negative for bacterial pathogens. Her WBC normalized on day of discharge and she demonstrated ability to tolerate PO intake. She was still experiencing diarrhea and nausea on day of discharge, but no longer vomiting. She was advised to maintain oral hydration and progress her diet as tolerated. [facility] paperwork completed per patient's employer request. No further work-up recommended. 2) Hypokalemia K level was 3.2 on admission; repleted and normalized to 3.5 on day of discharge. No further evaluation recommended. Total Time Total Time Spent Total Time Spent (In Minutes): see attending attestation Discharge Plan Discharge Items Patient Disposition: Home - Self-Care Reason For Visit: Gastroenteritis Discharge Diagnosis: Viral Gastroenteritis Condition on Discharge: Good Activity: Resume your previous activity Non-emergency contact: Primary Care Provider Call non-emergency contact if: you have any medication questions Follow-up/Referrals: Radha Ray [Primary Care Provider] - Diet: Regular Addtl Attending Provider Instructions: You were hospitalized for gastrointestinal distress, thought to be due to a viral infection of your GI tract. A cat scan of your abdomen was done, which showed inflammation of the small intestine. There was some initial concern for pancreatitis, but cat scan showed no involvement of the pancreas. You were treated with IV fluids to replace volume you lost from diarrhea and vomiting. Your potassium level was found to low during your hospitalization, but we supplemented this during your hospital stay. On the day of discharge, your level normalized. [facility] paperwork was completed per your request. You are medically cleared to return to work on the next business day. Your diarrhea may persist past your discharge - this is not unusual for a viral infection (your stool was tested for bacteria, but failed to show growth). Please make an effort to stay hydrated, as prolonged diarrhea can cause dehydration. A perscription of anti- nausea medication known as zofran was called into your pharmacy - you may continue to use this as needed after your discharge. Pending Studies at Discharge: No Stand-Alone Forms: Call Back Authorization, [facility], Smoking Cessation Medications and DC Order Prescriptions: Continued cholecalciferol (vitamin D3) 5,000 unit tablet 5,000 units PO DAILY RF: 0 loratadine-pseudoephedrine 5-120 mg tablet extended release 12 hr 1 tab PO DAILY RF: 0 bupropion HCl [Wellbutrin XL] 150 mg tablet extended release 24 hr 150 mg PO QAM RF: 0 fluoxetine [Prozac] 10 mg capsule 10 mg PO DAILY RF: 0 furosemide 40 mg tablet 40 mg PO QAM RF: 0 meclizine 25 mg tablet 25 mg PO TID PRN (Reason: dizziness) Qty: 14 RF: 0 multivitamin Tablet 1 tab PO DAILY RF: 0 Sleep Aid (doxylamine) 25 mg Tablet 25 mg PO HS PRN (Reason: Insomnia) RF: 0 diclofenac sodium 1 % gel 1 % TOPICAL DIRECTED RF: 0 Discharge Orders: Discharge Order (Routine); Ordered 05/16/19 Ordered By: Emili Shaikh Admission Data Admit Date/Time: 05/14/19 12:50 Attending Provider: Kamala Billy Admit Provider: Gt Arriaga Primary Care Provider: Radha Ray Other Providers: Gt Arriaga ; Christie La Other Interventions: Discharge Summary Assessment (RN) Last Done: 05/16/19 14:56 DC Date/Time DO NOT enter until pt leaves facility: 05/16/19 15:45 Supervising Physician Co-Signing Physician Notes Resident Physician Supervision Note: I independently interviewed and examined the patient and verified the luke history and physical, reviewed labs and image studies, discussed the case with the resident Dr. Shaikh and agree with the findings and care plan. Resident Activity Tracking Resident Involvement: Resident Care Provided Care Provided: Adult Hospital Medicine
[2019-05-18 17:58] LABS: MDA negative; MDEA negative; MDMA (Ecstasy) Urine, Confirm negative
== END 2019-05-16 15:45 | disposition home or self-care (01) | DRG 392 ==
LOC: ED 09:12 → SUATTDRO 12:50 → 4W 12:50

== ENCOUNTER 2019-06-03 11:34 | Inpatient (IN) ==
[2019-06-03] MEDS ORDERED: DiphenhydrAMINE HCL 50 MG/ML VIAL IV STA (12:07)
[2019-06-03] MEDS ORDERED: ONDANSETRON INJ 2 MG/ML 2 ML VIAL IV STA (12:07)
[2019-06-03] MEDS ORDERED: KETOROLAC TROMETHAMINE 15 MG/ML VIAL IV STA (12:07)
[2019-06-03] MEDS ORDERED: HYDROmorphone INJ 0.5 MG/0.5 ML SYR IV PRN ×2 (12:07→15:03)
[2019-06-03] MEDS ORDERED: SODIUM CHLORIDE 0.9% 1000ML 1,000 ML IV ONE (12:07)
[2019-06-03 12:29] LABS: Basophils # (auto) 0.04 K/uL (0-0.2); Basophils % (auto) 0.5 %; Eosinophils # (auto) 1.08 K/uL (0-0.5); Eosinophils % (auto) 12.9 %; Hematocrit (blood only) 49.6 % (37-47); Immature Granulocytes # (auto) 0.03 K/uL (0.00-0.02); Immature Granulocytes % (auto) 0.4 %; Lymphocytes # (auto) 2.85 K/uL (1.2-3.4); Lymphocytes % (auto) 34.1 %; Mean Corpuscular Hgb Conc 34.3 g/dL (32-36); Mean Corpuscular Volume 90.5 fL (80-100); Mean Platelet Volume 9.7 fL (7.4-10.4); Monocytes # (auto) 0.36 K/uL (0.11-0.59); Monocytes % (auto) 4.3 %; Neutrophils # (auto) 3.99 K/uL (1.4-6.5); Neutrophils % (auto) 47.8 %; Platelet Count 339 K/uL (130-400); RDW Coefficient of Variation 12.9 % (11.5-14.5); RDW Standard Deviation 42.6 fL (36.4-46.3); Red Blood Count 5.48 M/uL (4.2-5.4); White Blood Count 8.35 K/uL (4.8-10.8)
--- NOTE | 2019-06-03 12:36 | XRay Report ---
XR chest 1V portable CLINICAL HISTORY: Epigastric pain COMPARISON STUDY: 07/22/2018 FINDINGS: The cardiac and mediastinal contours are normal. There is no evidence of focal pulmonary co nsolidation. There is no evidence of failure. No pleural effusions are visualized.[No free intraperit conn air is visualized IMPRESSION: No active disease in the chest. ACT 112: Negative or not required by law. Electronically signed by: Wero Ortega M.D. 06/03/2019 12:34 PM
[2019-06-03 12:48] LABS: Alanine Aminotransferase 46 U/L (12-78); Albumin Level 4.2 gm/dl (3.4-5.0); Aspartate Aminotransferase 25 U/L (15-37); BUN Creatinine Ratio 13.1 (10-20); Blood Urea Nitrogen 16 mg/dl (7-18); Calcium 9.9 mg/dl (8.5-10.1); Carbon Dioxide 30 mmol/L (21-32); Chloride 105 mmol/L (98-107); Est GFR (African American) 61.3; Est GFR (Non-African American) 52.9; Glucose 126 mg/dl (70-99); Magnesium 2.2 mg/dl (1.8-2.4); Potassium 3.7 mmol/L (3.5-5.1); Sodium 140 mmol/L (136-145)
[2019-06-03 12:53] LABS: Albumin Globulin Ratio 1.1 (0.9-2); Alkaline Phosphatase 132 U/L (45-117); Bilirubin,Total 0.4 mg/dl (0.2-1); Globulin 3.9 gm/dl (2.5-4.0); Lipase 4569 U/L (73-393); Total Protein 8.1 gm/dl (6.4-8.2); Troponin I < 0.015 ng/ml (0-0.045)
--- NOTE | 2019-06-03 13:33 | History & Physical Report ---
Date of Service June 03, 2019 Assessment & Plan (1) Acute pancreatitis: - Admit to med surg - Lipase is elevated at 4569 upon admission, Alk phos = 132 - Lactated ringers at 250 ml/hr x 1 day - NPO except meds with sips/chips - Pain management with dilaudid IV 0.5 mg Q3H prn, tylenol - Trend lipase and LFT with am labs - GI consulted - Dr. Giraldo, discussed with Nona Patten over the phone, can possibly do a repeat HIDA scan. Pt will need an EUS 6wks after discharge as long as no other acute pancreatitis flares. (2) Madina's thyroiditis: - Followed with Dr. Palacios as outpatient (3) Obesity (BMI 30-39.9): - BMI of 31.9, encourage diet and exercise as outpatient - Pt does not watch diet or limit the amount of carbs/sugar. Would recommend this based on fatty liver as seen on imaging. (4) GERD (gastroesophageal reflux disease): - Stable, will need EUS as outpatient after 6wks so inflammation is reduced (5) Hypothyroidism: - Follows with Dr. Graff as outpatient. (6) Depression: - Continue Wellbutrin, Prozac (7) Obstructive sleep apnea: - Continue CPAP (8) CLOVIS (acute kidney injury): - Cr. elevated at 1.21 where baseline is typically 0.8-0.9. - LR as above will help to resolve this. Avoid other nephrotoxins. (9) Hyperglycemia: - Glucose mildly elevated at 126, last a1c completed this month was 5.6 - Monitor with am BMP, likely secondary to pancreatitis. (10) DVT prophylaxis: -teds, ambulatory CODE: FULL Dispo: From home, likely to remain in the hospital x 1 day. History of Present Illness Primary Care Provider: Radha Ray This is a 49 yo F with PMHx of hyperlipidemia, fatty liver, hypothyroidism, GERD, CAMRON on cpap, Madina's thyroiditis, hypothyroidism and remote history of smoking who presents with similar symptoms from most recent admission on 05/14/19 where she was diagnosed with acute pancreatitis as well as a possible bowel enteritis. The patient ate breakfast this morning(toast) and then approximately 30 minutes later developed nausea, vomiting, significant upper abdominal pain, and felt that she should come to the ER. She admits to having diarrhea, ~4-6 BMs daily, but reports this is been going on even prior to her last admission, it has not improved since she left the hospital last time. She denies BRBPR, no hematochezia, dark or tarry stools. She eats a wide variety of foods in her diet and does not limit fatty or sugary foods. She also notes her menopausal hot flashes have seemed to make her abdominal complaints worse. Whenever she has a hot flash, it is followed by abdominal cramping and pain. Her spouse is present with her at bedside and reports that he would like [facility] team to see the patient during this admission as he has had good experiences with [facility] team in the past. The patient had a HIDA scan conducted last August 2018 which showed reduced ejection fraction equal to 19%. Gallbladder ultrasound conducted today is negative for choledocholithiasis, she has been taking all her regularly scheduled medications as directed, without any recent changes. Lipase is elevated at 4569 upon admission, Alk phos = 132, Cr. elevated at 1.21 where baseline is typically 0.8-0.9. Glucose mildly elevated at 126. Allergies Allergy/AdvReac Type Severity Reaction Status Date / Time statin Allergy Mild myalgias Uncoded 06/03/19 14:03 Home Medications Home Medications Medication Instructions Recorded Confirmed Type furosemide 40 mg PO QAM 07/22/18 06/03/19 History cholecalciferol (vitamin D3) 125 5,000 units PO QAM tab 11/24/18 06/03/19 History mcg (5,000 unit) tablet loratadine 5 mg-pseudoephedrine ER 1 tab PO QAM tab 11/24/18 06/03/19 History 120 mg tablet,extended release,12hr fluoxetine 10 mg capsule 10 mg PO QAM 04/21/19 06/03/19 History diclofenac sodium 1 % TOPICAL QID 05/14/19 06/03/19 History multivitamin 1 tab PO QAM 05/14/19 06/03/19 History bupropion HCl 300 mg 24 hr tablet, 300 mg PO QAM 05/23/19 06/03/19 History extended release diphenhydramine 25 1 tab PO HS tab 05/23/19 06/03/19 History mg-acetaminophen 500 mg tablet famotidine [Pepcid AC] 20 mg PO QAM 06/03/19 06/03/19 History Past Med/Surg History Medical History Aching pain Depression GERD (gastroesophageal reflux disease) History of colon polyps Hyperlipidemia no meds Hypothyroidism Migraines Nausea and vomiting after administration of anesthetic agent Obstructive sleep apnea Sleep apnea cpap Surgical History History of bilateral tubal ligation History of colonoscopy History of dilatation and curettage History of endometrial ablation History of endoscopic sinus surgery History of HIDA scan Negative study 08/17/2018 History of hysterectomy History of wisdom tooth extraction Family History Father Family history of reaction to anesthesia nausea and vomiting Family history of diabetes mellitus Family hx of colon cancer Colorectal cancer Hypertension Mother Family history of diabetes mellitus Grandfather Stroke Other Diabetes Prostate cancer Social History Preferred Language: Korean Communication Ability: Effective 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 Required: No Beliefs That Will Affect Care: None marital status: Current Living Situation: Family Other Information That Helps Us Care for You: No Feels Safe at Home: Yes Safety Concerns: Feels Safe At This Time Smoking Status: Former smoker Do You Dip or Chew Tobacco: No ; Second Hand Exposure: No ; Tobacco Cessation Education Requested by Patient: No Hx Alcohol Use: Yes Alcohol type: beer, wine and hard liquor Hx Substance Use: No Review of Systems Review of Systems: Constitutional: No fever, sweats or chills Eyes: No diplopia, no worsening or blurred vision ENT: normal hearing, no trouble swallowing Respiratory: No cough, sputum, dyspnea at rest or on exertion Cardiovascular: No chest pain, tightness or palpitations Abdomen: As per HPI. + Currently no pain, nausea, vomiting. + diarrhea Musculoskeletal: No joint pain, calf pain, swelling Neurologic: No weakness, numbness/tingling, or balance problems Psychiatric: No anxiety or depression Skin: No rash or itch Physical Exam Physical Exam: General: awake, alert, no apparent distress, + obese Head: Normocephalic, atraumatic ENT: PERRL, EOMI, no pharyngeal exudate, mucous membranes moist Chest: Clear to auscultation, on room air, no adventitious breath sounds Cardiac: Regular rate and rhythm, no murmur, no JVD, normal peripheral pulses, good capillary refill Abdominal: NABS x 4 quadrants, soft, nondistended, nontender to palpation, no rebound, guarding or tenderness Extremities: Normal inspection, no peripheral edema or erythema, calfs nontender to palpation Psych: Normal mood and affect Neuro: AAO x 3, no gross motor deficits, speech is clear, no peripheral sensory deficits Results & Data Vital Signs (Past 12 Hours) Vital Signs Temp Pulse Resp BP Pulse Ox 06/03/19 12:11 98 06/03/19 11:44 36.5 C 75 18 148/110 H 99 Diagnostic Findings XR chest 1V portable CLINICAL HISTORY: Epigastric pain COMPARISON STUDY: 07/22/2018 FINDINGS: The cardiac and mediastinal contours are normal. There is no evidence of focal pulmonary consolidation. There is no evidence of failure. No pleural effusions are visualized.[No free intraperitoneal air is visualized IMPRESSION: No active disease in the chest. ACT 112: Negative or not required by law. Electronically signed by: Wero Ortega M.D. 06/03/2019 12:34 PM US gallbladder CLINICAL HISTORY: nv, pain COMPARISON STUDY: CT of the abdomen and pelvis May 14, 2019. FINDINGS: This exam is compromised by suboptimal penetration. Hepatic echogenicity is increased. There are no hepatic lesions. The gallbladder is normal. No gallstones are noted. The pancreas is partially obscured but visualized portions are normal. There is no right hydronephrosis. IMPRESSION: 1. Fatty infiltration of the liver. 2. No gallstones or biliary ductal dilatation. 3. Partially obscured pancreas. ECG Additional Comments: 03-JUN-2019 12:18:10 [facility]-EDSTAT ROUTINE RETRIEVAL Normal sinus rhythm Normal ECG When compared with ECG of 14-MAY-2019 09:21, No significant change was found 25mm/s 10mm/mV 150Hz 9.0.9 12SL 241 JUANITA: 15 Unconfirmed Vent. rate 60 BPM WA interval 118 ms QRS duration 90 ms QT/QTc 440/440 ms P-R-T axes 65 55 60 Code Status & VTE Plan Code Status Full Code- discussed with pt at bedside with Supervising Physician Co-Signing Physician Notes Patient seen and examined, chart reviewed, case discussed with ARLEEN Ho and I agree with her assessment and plan as documented above. Briefly, patient is a 49yo C female presenting with acute pancreatitis. On exam she is afebrile, HD stable, NAD Skin - warm, dry, intact, no rashes/lesions HEENT- - NC/AT, PERRL, MMM, Neck supple Heart - +S1/S2, regular, no m/r/g Lungs - CTA Abd - +BS, soft, diffusely tender mostly in epigastric region, no rebound/guarding/peritoneal signs Ext - warm, well perfused, no clubbing/cyanosis or edema Labs and images reviewed. Significant for Hgb=17, Hct=49.6. BUN=1.21, Ca=9.9 Gallbladder US with no gallstones or biliary ductal dilatation -Assessment/Plan 49yo C female with acute pancreatitis. Also with diarrhea -NPO, aggressive IVF with LR, pain and nausea control -Repeat labs in AM -Stool studies - c.diff, culture and giardia. Patient drinks well-water at home -Remainder of plan as above PG Care Time/CCT Total # of Minutes Spent Total Time Spent with Patient: Total time spent is greater than 50% in coordination of care (as documented) at patient's floor/unit and/or counseling patient: Coding Level of Care Code 35421 Initial Inpt Care Lvl 3 Diagnoses Acute pancreatitis K85.90 Madina's thyroiditis E06.3 Obesity (BMI 30-39.9) E66.9 GERD (gastroesophageal reflux disease) K21.9 Hypothyroidism E03.9 Depression F32.9 Obstructive sleep apnea G47.33 CLOVIS (acute kidney injury) N17.9 Hyperglycemia R73.9 DVT prophylaxis Z29.9
--- NOTE | 2019-06-03 13:40 | Ultrasound Report ---
US gallbladder CLINICAL HISTORY: nv, pain COMPARISON STUDY: CT of the abdomen and pelvis May 14, 2019. FINDINGS: This exam is compromised by suboptimal penetration. Hepatic echogenicity is increased. Ther e are no hepatic lesions. The gallbladder is normal. No gallstones are noted. The pancreas is partial ly obscured but visualized portions are normal. There is no right hydronephrosis. IMPRESSION: 1. Fatty infiltration of the liver. 2. No gallstones or biliary ductal dilatation. 3. Partially obscured pancreas. ACT 112: Negative or not required by law. Electronically signed by: Malvin Encarnacion M.D. 06/03/2019 1:38 PM
--- NOTE | 2019-06-03 14:59 | Gastrointestinal Consultation ---
Date of Consultation June 03, 2019 Assessment & Plan (1) Acute pancreatitis: 1. CT abd/pelvis with IV contrast. 2. LR 1L bolus then 250cc/hr 3. NPO today, if feels better tomorrow, then clear liquids po tomorrow morning. 4. Plan for OP EUS in 6wks. Present on Admission?: Yes (2) Diarrhea: 1. Stool for C-diff, culture and giardia. If (-), then immodium prn diarrhea. Present on Admission?: Yes Supervising Physician Co-Signing Physician Notes Attending attestation I have seen, examined this patient, and agree with the findings and above by our mid-level provider NUBIA Quintana, with the following additions -Probable pancreatitis complicated by CLOVIS and severe dehydration -CT scan with iv fluids -stool culture -Aggressive fluid recussitation will need to follow up cbc later this nighat to ensure Hct is falling History of Present Illness Reason for Consultation: Pancreatitis Requesting Physician: Saba Ho PA-C, [facility] Attending Physician: Dr. Cortes History of Present Illness Ms. Kayleen Garay is a 49 yr old female pt of Radha Ray NP with [facility]. The pt carries a hx of obesity, Madina's thyroiditis, GERD, CAMRON. She was hospitalized earlier this month 05/14-05/16 for acute gastroenteritis - stools cultures (+) for E.Coli. at that time, CT with IV contrast suggested thickening of jejunum consistent with enteritis, without pancreatic inflammation/masses. Lipase was 7000 and LFTs normal at that time. She tells us that she had nausea/vomiting/diarrhea/abdominal pain at the time of the prior admission. Eventually, the vomiting improved but nausea, post prandial pain and diarrhea persisted. She reports 4-5 liquid brown BMs/day. She returned to [facility] ED today for continued symptoms, worsening abdominal pain. On arrival, Lipase >5000, LFTs normal except Alk Phos minimally elevated at 132. She has a hx of smoker, stopping 2 yrs ago. No family hx of pancreatitis though her father did undergo cholecystectomy. Her who is at the bedside mentions that a family member with similar symptoms all resolved after cholecystectomy. Pt also mentions a prior HIDA scan with low functioning gallbladder. Allergies Allergy/AdvReac Type Severity Reaction Status Date / Time statin Allergy Mild myalgias Uncoded 06/03/19 14:03 Home Medications Home Medications Medication Instructions Recorded Confirmed Type furosemide 40 mg PO QAM 07/22/18 06/03/19 History cholecalciferol (vitamin D3) 125 5,000 units PO QAM tab 11/24/18 06/03/19 History mcg (5,000 unit) tablet loratadine 5 mg-pseudoephedrine ER 1 tab PO QAM tab 11/24/18 06/03/19 History 120 mg tablet,extended release,12hr fluoxetine 10 mg capsule 10 mg PO QAM 04/21/19 06/03/19 History diclofenac sodium 1 % TOPICAL QID 05/14/19 06/03/19 History multivitamin 1 tab PO QAM 05/14/19 06/03/19 History bupropion HCl 300 mg 24 hr tablet, 300 mg PO QAM 05/23/19 06/03/19 History extended release diphenhydramine 25 1 tab PO HS tab 05/23/19 06/03/19 History mg-acetaminophen 500 mg tablet famotidine [Pepcid AC] 20 mg PO QAM 06/03/19 06/03/19 History Patient History Medical History Aching pain Depression GERD (gastroesophageal reflux disease) History of colon polyps Hyperlipidemia no meds Hypothyroidism Migraines Nausea and vomiting after administration of anesthetic agent Obstructive sleep apnea Sleep apnea cpap Surgical History History of bilateral tubal ligation History of colonoscopy History of dilatation and curettage History of endometrial ablation History of endoscopic sinus surgery History of HIDA scan Negative study 08/17/2018 History of hysterectomy History of wisdom tooth extraction Family History Father Family history of reaction to anesthesia nausea and vomiting Family history of diabetes mellitus Family hx of colon cancer Colorectal cancer Hypertension Mother Family history of diabetes mellitus Grandfather Stroke Other Diabetes Prostate cancer Social History Preferred Language: Swiss Communication Ability: Effective Planning Intern Required: No Beliefs That Will Affect Care: None marital status: Current Living Situation: Spouse and Family Feels Safe at Home: Yes Safety Concerns: Feels Safe At This Time Smoking Status: Former smoker Do You Dip or Chew Tobacco: No ; Second Hand Exposure: No ; Tobacco Cessation Education Requested by Patient: No Hx Alcohol Use: Yes Alcohol type: beer, wine and hard liquor Hx Substance Use: No Review of Systems Review of Systems: ROS: Gen: +weakness and weight loss; no fevers Eyes: No eye redness, or pain, no recent vision changes Resp: No SOB, no cough Cardio: No palpitations/irregular beats, no chest pain GI: + upper abdomen pain, nausea/vomiting and diarrhea : Denies pain on urination Skin: No jaundice, itching or new rashes Physical Exam Constitutional: WD/WN, vitals as above Eyes: PERRL, conjunctivae normal, anicteric sclerae ENMT: external ear and nose normal, oropharynx normal Neck: trachea midline, no thyromegaly Respiratory: normal respiratory effort, lungs clear to auscultation Cardiovascular: RRR, no murmur, no edema Gastrointestinal (Abdomen): Percussion/Palpation: + abdomen tender (moderate, epigastric) and abdomen soft; no ascites Skin: no rashes, warm and dry no jaundice Neurologic: PERRL, EOMI, accommodation nl, no face palsy, no dysarthria Psychiatric: A+Ox3, euthymic affect Lymphatic: no cervical or axillary lymphadenopathy Results & Data Vital Signs (Past 12 Hours) Vital Signs Temp Pulse Resp BP Pulse Ox 06/03/19 14:31 62 14 134/90 96 06/03/19 14:30 60 14 96 06/03/19 14:02 63 15 95 06/03/19 14:01 63 14 130/61 96 06/03/19 14:00 63 16 95 06/03/19 13:31 59 L 10 L 128/77 97 06/03/19 13:30 56 L 10 L 96 06/03/19 13:29 56 L 12 94 06/03/19 13:28 55 L 14 124/74 93 06/03/19 13:00 56 L 17 96 06/03/19 12:31 65 16 94 06/03/19 12:11 98 06/03/19 11:44 36.5 C 75 18 148/110 H 99 06/03/19 11:42 58 L 12 148/110 H 96
[2019-06-03] MEDS ORDERED: ONDANSETRON INJ 2 MG/ML 2 ML VIAL IV PRN (15:03)
[2019-06-03] MEDS ORDERED: ACETAMINOPHEN 325 MG TAB PO PRN (15:03)
[2019-06-03] MEDS ORDERED: LACTATED RINGER'S 1,000 ML IV ONE (15:27)
[2019-06-03 16:53] LABS: Appearance Urine Clear (Clear); Bilirubin Urine Negative (Negative); Blood Urine Negative (Negative); Color Urine Yellow; Glucose Urine UA Negative (Negative); Ketones Urine Negative (Negative); Leukocyte Esterase Urine Negative (Negative); Nitrite Urine Negative (Negative); Protein Urine Negative (Negative); Specific Gravity Urine 1.023 (1.000-1.030); Urobilinogen Urine Negative (Negative)
[2019-06-03] MEDS: LACTATED RINGER'S 1,000 ML IV SCH ×2 (17:11→21:21)
[2019-06-03] MEDS ORDERED: IOVERSOL 100ml IV PRN (17:32)
--- NOTE | 2019-06-03 17:32 | Electrocardiogram Report ---
Test Reason : Blood Pressure : / mmHG Vent. Rate : 060 BPM Atrial Rate : 060 BPM P-R Int : 118 ms QRS Dur : 090 ms QT Int : 440 ms P-R-T Axes : 065 055 060 degrees QTc Int : 440 ms Normal sinus rhythm Normal ECG When compared with ECG of 14-MAY-2019 09:21, No significant change was found Confirmed by Vickey Trevino ([id number]) on 06/03/2019 5:31:59 PM Referred By: REFERRED SELF Confirmed By:Bowen Trevino
--- NOTE | 2019-06-03 17:46 | CT Scan Report ---
ABDOMEN AND PELVIS CT WITH IV CONTRAST CT DOSE: 1176.05 mGy.cm HISTORY: Acute generalized abdominal pain with elevated lipase abdomen pain, elevated lipase TECHNIQUE: Multiaxial CT images of the abdomen and pelvis were performed following the IV administrat ion of 94 cc of Optiray 320, A dose lowering technique was utilized adhering to the principles of AL LISSETT. COMPARISON STUDY: CT abdomen pelvis 05/14/2019 FINDINGS: Mild bibasilar atelectasis. No pneumatosis or pneumoperitoneum identified. The imaged inferior cardia c chambers are unremarkable. Hepatomegaly with hepatic steatosis. No evidence of cirrhotic liver dise ase or focal hepatic mass lesion. Patency of the hepatic and portal veins. Unremarkable spleen, pancr eas, gallbladder and adrenal glands. No CT evidence of acute pancreatitis. 7 mm hypodense focus of th e interpolar left kidney suggest probable cyst. No renal or ureteral calculi or obstructive uropathy. Unremarkable ureters, urinary bladder. Hysterectomy. No adnexal mass lesion. Calcified plaque of the abdominal aorta without aneurysm. No adenopathy. Unremarkable IVC. Mild nonspecific distal esophageal wall thickening. Circumferential wall thickening is again noted in volving multiple loops of small bowel with perienteric inflammatory stranding and mild interloop chuckie a. Trace perihepatic ascites. Multiple scattered small bowel air-fluid levels. Mild colonic diverticu losis. Scattered air-fluid levels within nondilated loops of large bowel. Fluid-filled nondilated rufus endix. No drainable fluid collection. Soft tissues and breast parenchyma appear unremarkable. Facet a rthrosis and spondylitic spurring of the spine. IMPRESSION: 1. Wall thickening is again noted involving multiple loops of small bowel with perienteric stranding and interloop edema along with both small and large bowel air-fluid levels. No transition point ident ified to suggest obstruction. Findings are suggestive of enteritis with diarrheal illness, likely inf ectious or inflammatory. 2. No pneumatosis or pneumoperitoneum. 3. No CT evidence of acute pancreatitis. 4. Hepatomegaly with hepatic steatosis. 5. Fluid-filled appendix is likely secondary to the aforementioned colonic findings. 6. Trace ascites. ACT 112: Negative or not required by law. The above report was generated using voice recognition software. It may contain grammatical, syntax o r spelling errors. Electronically signed by: Arnold Thorne M.D. 06/03/2019 5:44 PM
--- NOTE | 2019-06-03 18:42 | Emergency Department Note ---
Entered by Zulay Rowe acting as a scribe for History of Present Illness General Chief complaint: Abdominal Pain Time Seen by Provider: 06/03/19 12:01 Source: patient History of Present Illness Onset (ago): hour(s) (a few hours ago) Location: abdomen Severity: similar to prior episodes (gastroenteritis) Pain Consistency: + other (episode) Maximum Pain Intensity: 10 Associated symptoms: + denies other symptoms (hematemesis, hematochezia), + nausea/vomiting, + shortness of breath and + other (diarrhea, numbness in hands) The patient is a 49 year old female who presents to the Emergency Room with complaints of an episode of abdominal pain starting a few hours ago. The patient states that she was discharged on the from the hospital with gastroenteritis. She states that she feels the same thing is happening again. She reports that she felt fine last night and this morning when she got up. She notes that she has had persistent diarrhea, but it hasnt been bad. The patient states that a few hours ago after eating she started having middle upper abdominal pain, severe diarrhea, and vomiting. She notes that her abdominal pain takes her breath away. The patient complains of numbness in her hands. She notes that a little bit ago they found on a nuclear test that her gallbladder was sl uggish, but insurance wouldnt cover resection. The patient denies hematemesis and hematochezia. Home Medications Home Medications Medication Instructions Recorded Confirmed Type furosemide 40 mg PO QAM 07/22/18 06/03/19 History cholecalciferol (vitamin D3) 125 5,000 units PO QAM tab 11/24/18 06/03/19 History mcg (5,000 unit) tablet loratadine 5 mg-pseudoephedrine ER 1 tab PO QAM tab 11/24/18 06/03/19 History 120 mg tablet,extended release,12hr fluoxetine 10 mg capsule 10 mg PO QAM 04/21/19 06/03/19 History diclofenac sodium 1 % TOPICAL QID 05/14/19 06/03/19 History multivitamin 1 tab PO QAM 05/14/19 06/03/19 History bupropion HCl 300 mg 24 hr tablet, 300 mg PO QAM 05/23/19 06/03/19 History extended release diphenhydramine 25 1 tab PO HS tab 05/23/19 06/03/19 History mg-acetaminophen 500 mg tablet famotidine [Pepcid AC] 20 mg PO QAM 06/03/19 06/03/19 History Allergies Allergy/AdvReac Type Severity Reaction Status Date / Time statin Allergy Mild myalgias Uncoded 06/03/19 14:03 Past Med/Surg History Medical History Aching pain Depression GERD (gastroesophageal reflux disease) History of colon polyps Hyperlipidemia no meds Hypothyroidism Migraines Nausea and vomiting after administration of anesthetic agent Obstructive sleep apnea Sleep apnea cpap Surgical History History of bilateral tubal ligation History of colonoscopy History of dilatation and curettage History of endometrial ablation History of endoscopic sinus surgery History of HIDA scan Negative study 08/17/2018 History of hysterectomy History of wisdom tooth extraction Family History Father Family history of reaction to anesthesia nausea and vomiting Family history of diabetes mellitus Family hx of colon cancer Colorectal cancer Hypertension Mother Family history of diabetes mellitus Grandfather Stroke Other Diabetes Prostate cancer Social History Preferred Language: Amharic Communication Ability: Effective Computer Graphics Illustrator Required: No Beliefs That Will Affect Care: None marital status: Current Living Situation: Family Other Information That Helps Us Care for You: No Feels Safe at Home: Yes Safety Concerns: Feels Safe At This Time Smoking Status: Former smoker Do You Dip or Chew Tobacco: No ; Second Hand Exposure: No ; Tobacco Cessation Education Requested by Patient: No Hx Alcohol Use: Yes Alcohol type: beer, wine and hard liquor Hx Substance Use: No Review of Systems See HPI for pertinent positives & negatives. and A total of 10 systems reviewed and were otherwise negative Physical Exam Vital Signs Vital Signs - 24 hr 06/03/19 11:42 06/03/19 11:44 06/03/19 12:11 Temperature 36.5 C Temperature Source Oral Pulse Rate 58 L 75 Pulse Rate from SpO2 Sensor 57 L Pulse Rhythm Regular Pulse Strength Normal Respiratory Rate 12 18 Respiratory Effort / Characteristics Non-Labored Spontaneous Respiratory Depth Normal Respiratory Pattern Regular Blood Pressure 148/110 H 148/110 H Blood Pressure Mean 119 122 Blood Pressure Position Lying Pulse Oximetry 96 99 98 Oxygen Delivery Method Room Air Room Air Room Air Sepsis Recent Fever Within 48 Hours No Sepsis New/Unexplained Change in Mental Status No Sepsis Action Taken by Nursing No Action Required 06/03/19 12:31 06/03/19 13:00 06/03/19 13:28 Temperature Temperature Source Pulse Rate 65 56 L 55 L Pulse Rate from SpO2 Sensor 58 L 57 L 61 Pulse Rhythm Pulse Strength Respiratory Rate 16 17 14 Respiratory Effort / Characteristics Respiratory Depth Respiratory Pattern Blood Pressure 124/74 Blood Pressure Mean 78 Blood Pressure Position Pulse Oximetry 94 96 93 Oxygen Delivery Method Room Air Room Air Room Air Sepsis Recent Fever Within 48 Hours Sepsis New/Unexplained Change in Mental Status Sepsis Action Taken by Nursing 06/03/19 13:29 06/03/19 13:30 06/03/19 13:31 Temperature Temperature Source Pulse Rate 56 L 56 L 59 L Pulse Rate from SpO2 Sensor 56 L 59 L 59 L Pulse Rhythm Pulse Strength Respiratory Rate 12 10 L 10 L Respiratory Effort / Characteristics Respiratory Depth Respiratory Pattern Blood Pressure 128/77 Blood Pressure Mean 111 Blood Pressure Position Pulse Oximetry 94 96 97 Oxygen Delivery Method Room Air Room Air Room Air Sepsis Recent Fever Within 48 Hours Sepsis New/Unexplained Change in Mental Status Sepsis Action Taken by Nursing GENERAL: Patient is in moderate distress from pain. HEENT: No acute trauma, normocephalic atraumatic, mucous membranes moist, no nasal congestion, no scleral icterus. NECK: No stridor, no adenopathy, no meningismus, trachea is midline. LUNGS: Clear to auscultation bilaterally, no wheeze, no rhonchi, breath sounds equal. Increased respiratory rate. HEART: Without murmurs gallops or rubs, regular rate and rhythm. ABDOMEN: Soft, moderately tender primarily in the epigastrium, bowel sounds positive, no hernias, no peritonitis. EXTREMITIES: No cyanosis or edema, full range of motion of all the joints without pain or difficulty, no signs for acute trauma. NEUROLOGIC: Oriented x 3, no acute motor or sensory deficits, no focal weakness. SKIN: No rash, no jaundice, no diaphoresis. Course Course 1202: EMR reviewed. The patient was discharged on the 16 of May after being diagnosed with viral gastroenteritis. She had an elevated lipase at that time, but it was thought a result of her vomiting, not pancreatitis. 1204: The patient was evaluated in room C1B. A complete history and physical exam was performed. 1213: EMR reviewed again. On August 17, 2018, the patient had a HIDA scan. It showed no cystic duct obstruction. Her gallbladder ejection fraction was only 19%. On May 14 of this year, she had a CT of the abdomen that had findings in the small bowel consistent with potential enteritis. 1301: I discussed the patient's case with Dr. Sabi CLAROS Hospitalist. She will evaluate the patient for further management. Administered Medications Hydromorphone HCl (Dilaudid) 0.5 mg IV Q3H PRN PRN Reason: Pain Stop: 06/17/19 15:02 Last Admin: 06/03/19 17:15 Dose: 0.5 mg Documented by: [id number] Lactated Ringer's (Lr) 1,000 mls @ 250 mls/hr IV .Q4H THOMPSON Stop: 06/04/19 15:02 Last Admin: 06/03/19 17:11 Dose: 250 mls/hr Documented by: [id number] Ioversol (Optiray 320 100ml) 94 ml IV ONCE PRN PRN Reason: Interaction Checking Stop: 06/07/19 17:31 Last Admin: 06/03/19 17:33 Dose: 94 ml Documented by: [id number] Discontinued Medications Diphenhydramine HCl (Benadryl) 12.5 mg IV NOW STA Stop: 06/03/19 12:08 Last Admin: 06/03/19 12:21 Dose: 12.5 mg Documented by: [id number] Hydromorphone HCl (Dilaudid) 0.5 mg IV Q15M PRN PRN Reason: Pain Stop: 06/17/19 12:06 Last Admin: 06/03/19 12:22 Dose: 0.5 mg Documented by: [id number] Sodium Chloride (Nss 1000ml) 1,000 mls @ 999 mls/hr IV .Q1H1M ONE Stop: 06/03/19 13:07 Last Infusion: 06/03/19 13:22 Dose: 0 mls/hr Documented by: [id number] Admin: 06/03/19 12:21 Dose: 999 mls/hr Documented by: [id number] Lactated Ringer's (Lr) 1,000 mls @ 999 mls/hr IV .Q1H1M ONE Stop: 06/03/19 16:27 Last Infusion: 06/03/19 17:13 Dose: 0 mls/hr Documented by: [id number] Admin: 06/03/19 15:39 Dose: 999 mls/hr Documented by: [id number] Ketorolac Tromethamine (Toradol) 15 mg IV NOW STA Stop: 06/03/19 12:08 Last Admin: 06/03/19 12:22 Dose: 15 mg Documented by: [id number] Ondansetron HCl (Zofran) 4 mg IV NOW STA Stop: 06/03/19 12:08 Last Admin: 06/03/19 12:22 Dose: 4 mg Documented by: [id number] Medical Decision Making Differential Diagnosis Differential diagnoses include biliary colic, acute cholecystitis, pancreatitis, dehydration, gastritis, food borne illness, viral illness, UTI, renal injury, cardiac ischemia. Medical Records Attestation: I reviewed the patient's medical records. Home Medications Current Medication List: was personally reviewed by me Laboratory Data Attestation: I reviewed the patient's lab results. Result diagrams: 06/03/19 12:00 06/03/19 12:00 Lab Results 06/03/19 06/03/19 Range/Units 12:00 12:00 WBC 8.35 (4.8-10.8) K/uL RBC 5.48 H (4.2-5.4) M/uL Hgb 17.0 H (12.0-16.0) g/dL Hct 49.6 H (37-47) % MCV 90.5 (80-100) fL MCH 31.0 (25-34) pg MCHC 34.3 (32-36) g/dL RDW Std Deviation 42.6 (36.4-46.3) fL RDW Coeff of Abhinav 12.9 (11.5-14.5) % Plt Count 339 (130-400) K/uL MPV 9.7 (7.4-10.4) fL Immature Gran % (Auto) 0.4 % Neut % (Auto) 47.8 % Lymph % (Auto) 34.1 % Coffey % (Auto) 4.3 % Eos % (Auto) 12.9 % Baso % (Auto) 0.5 % Immature Gran # (Auto) 0.03 H (0.00-0.02) K/uL Neut # (Auto) 3.99 (1.4-6.5) K/uL Lymph # (Auto) 2.85 (1.2-3.4) K/uL Coffey # (Auto) 0.36 (0.11-0.59) K/uL Eos # (Auto) 1.08 H (0-0.5) K/uL Baso # (Auto) 0.04 (0-0.2) K/uL Sodium 140 (136-145) mmol/L Potassium 3.7 (3.5-5.1) mmol/L Chloride 105 (98-107) mmol/L Carbon Dioxide 30 (21-32) mmol/L Anion Gap 5.0 (3-11) BUN 16 (7-18) mg/dl Creatinine 1.21 H (0.6-1.2) mg/dl Est Cr Clr Drug Dosing 73.0 ml/min Est GFR ( Amer) 61.3 Est GFR (Non-Af Amer) 52.9 BUN/Creatinine Ratio 13.1 (10-20) Glucose 126 H (70-99) mg/dl Calcium 9.9 (8.5-10.1) mg/dl Magnesium 2.2 (1.8-2.4) mg/dl Total Bilirubin 0.4 (0.2-1) mg/dl AST 25 (15-37) U/L ALT 46 (12-78) U/L Alkaline Phosphatase 132 H (45-117) U/L Troponin I < 0.015 (0-0.045) ng/ml Total Protein 8.1 (6.4-8.2) gm/dl Albumin 4.2 (3.4-5.0) gm/dl Globulin 3.9 (2.5-4.0) gm/dl Albumin/Globulin Ratio 1.1 (0.9-2) Lipase 4569 H (73-393) U/L Imaging Data Radiologist's Impression: Radiology results as stated below per my review and the radiologist's interpretation: XR chest 1V portable CLINICAL HISTORY: Epigastric pain COMPARISON STUDY: 07/22/2018 FINDINGS: The cardiac and mediastinal contours are normal. There is no evidence of focal pulmonary consolidation. There is no evidence of failure. No pleural effusions are visualized.[No free intraperitoneal air is visualized IMPRESSION: No active disease in the chest. ACT 112: Negative or not required by law. Electronically signed by: Wero Ortega M.D. 06/03/2019 12:34 PM US gallbladder CLINICAL HISTORY: nv, pain COMPARISON STUDY: CT of the abdomen and pelvis May 14, 2019. FINDINGS: This exam is compromised by suboptimal penetration. Hepatic echogenicity is increased. There are no hepatic lesions. The gallbladder is normal. No gallstones are noted. The pancreas is partially obscured but visualized portions are normal. There is no right hydronephrosis. IMPRESSION: 1. Fatty infiltration of the liver. 2. No gallstones or biliary ductal dilatation. 3. Partially obscured pancreas. ACT 112: Negative or not required by law. Electronically signed by: Malvin Encarnacion M.D. 06/03/2019 1:38 PM ECG Data Attestation: I personally reviewed and interpreted this ECG as follows: Indication: + abdominal pain Rate (beats per minute): 60 Rhythm: + normal sinus ECG ST segments: no ST elevation ECG Findings: + Other (QT-c 440); no PVCs Blood Pressure Blood Pressure Findings: Elevated blood pressure Blood Pressure Disposition: Referred to patients primary care provider [facility] Narrative There is no leukocytosis or concerning anemia. No significant electrolyte abnormality or kidney failure. Alk phos was somewhat elevated at 132. Lipase was quite high at 4500. EKG showed a sinus rhythm, no acute ischemia. Cardiac enzyme testing x1 was not consistent with acute cardiac injury. Urinalysis did not show evidence for infection. Gallbladder ultrasound did not show acute cholecystitis or gallstones. The patient was complaining of epigastric abdominal pain, vomiting and diarrhea. Work-up here does suggest acute pancreatitis as the cause for her presentation. The patient received IV Toradol, IV Zofran, IV Benadryl, IV saline and IV Dilaud id, she does feel improved. I did speak to the patient about her findings, I spoke with case management, hospitalization is warranted. The on-call hospitalist has been consulted. Continuous Cardiac Monitoring: An order was placed for continuous cardiac monitoring. The monitor shows a rate of 62 with normal sinus rhythm. Impression & Plan Abdominal pain, epigastric, Acute pancreatitis, Nausea vomiting and diarrhea Discharge Plan Visit Data *Final* Discharge Date/Time: 06/03/19 14:43 Chief Complaint: Abdominal Pain ED Provider: Wesley Ambrocio Discharge Problem: Abdominal pain, epigastric, Acute pancreatitis, Nausea vomiting and diarrhea Patient Disposition: Admitted As Inpatient Discharge Instructions Interventions: ED Discharge Assessment Last Done: 06/03/19 14:43 Discharge Problem: Acute pancreatitis Qualifiers: Pancreatitis type: unspecified pancreatitis type Acute pancreatitis complication: unspecified Qualified Code(s): K85.90 - Acute pancreatitis without necrosis or infection, unspecified The adamaibe's documentation has been prepared under my direction and personally reviewed by me in its entirety. I confirm that the note above accurately reflects all work, treatment, procedures, and medical decision making performed by me.
[2019-06-03] MEDS ORDERED: COUGH DROP (SUGAR FREE) LOZ 24 LOZ/1 BOX BUCCAL ONE (21:22)
[2019-06-03] MEDS ORDERED: CHLORASEPTIC 1.4% SOLN 180 ML BTL MT PRN (21:47)
[2019-06-04] MEDS: LACTATED RINGER'S 1,000 ML IV SCH ×6 (00:10→19:46)
[2019-06-04 07:20] LABS: Alanine Aminotransferase 33 U/L (12-78); Albumin Level 2.9 gm/dl (3.4-5.0); Aspartate Aminotransferase 17 U/L (15-37); BUN Creatinine Ratio 11.7 (10-20); Bilirubin Direct < 0.1 mg/dl (0-0.2); Blood Urea Nitrogen 11 mg/dl (7-18); Calcium 8.4 mg/dl (8.5-10.1); Carbon Dioxide 29 mmol/L (21-32); Chloride 109 mmol/L (98-107); Est GFR (Non-African American) 69.1; Glucose 80 mg/dl (70-99); Lipase 147 U/L (73-393); Potassium 3.9 mmol/L (3.5-5.1); Sodium 143 mmol/L (136-145)
[2019-06-04 07:24] LABS: Alkaline Phosphatase 86 U/L (45-117); Bilirubin,Total 0.4 mg/dl (0.2-1); Globulin 2.9 gm/dl (2.5-4.0); Total Protein 5.8 gm/dl (6.4-8.2)
[2019-06-04 07:44] LABS: Hematocrit (blood only) 38.5 % (37-47); Hemoglobin 12.9 g/dL (12.0-16.0); Mean Corpuscular Hemoglobin 30.9 pg (25-34); Mean Corpuscular Hgb Conc 33.5 g/dL (32-36); Mean Corpuscular Volume 92.1 fL (80-100); Mean Platelet Volume 9.6 fL (7.4-10.4); Platelet Count 221 K/uL (130-400); RDW Standard Deviation 43.5 fL (36.4-46.3); Red Blood Count 4.18 M/uL (4.2-5.4); White Blood Count 7.26 K/uL (4.8-10.8)
[2019-06-04] MEDS: FLUOXETINE HCL 10 MG CAP PO SCH (08:46)
[2019-06-04] MEDS: BuPROPion XL 300 MG TABCR PO SCH (08:46)
[2019-06-04] MEDS ORDERED: CHOLECALCIFEROL 1,000 UNITS 25 MCG TAB PO SCH (09:00)
--- NOTE | 2019-06-04 14:23 | Hospitalist Progress Note ---
Date of Service June 04, 2019 Assessment & Plan (1) Enteritis: With small bowel thickening persistent on CT scan similar to 3 weeks ago Stool culture from previous negative and again repeated here and is pending C. difficile is negative Likely viral gastroenteritis as per my discussion with GI Her CT from 1 year ago with similar symptoms did not have any enteritis on this imaging I do not feel this is related to her possible chronic cholecystitis and therefore a cholecystectomy at this time would not likely cure her enteritis -Trial of colestipol to help with diarrhea -GI consultation appreciated-thinks that enteritis may take several weeks to resolve especially on imaging (2) Nausea & vomiting: Ongoing for 5 to 6 weeks intermittently With enteritis on imaging as above Had similar episodes off and on in the last year, previous EGD without significant abnormality Now with migraine contributing also -Give Phenergan, continue Zofran as needed Continue with IV fluid hydration and enteritis hopefully will resolve in the next few weeks -Replace electrolytes as needed No evidence of renal failure (3) Diarrhea: stool cx pending but were negative 2 weeks ago C. diff neg Could be related to gall bladder dysfunction Trial of colestipol (4) Migraine: Chronic, worsened here by caffeine deficiency -give toradol, phenergan -pepcid to prevent gastritis given h/o such while receiving Pepcid (5) Biliary dyskinesia: HIDA from 2019 with 19% EF, indicates chronic biliary dysfunction, no acute cholecystitis then or now Family requesting Surgical consultation to see about elective ibndu to see if would improve chronic issues with N/V (6) Acute pancreatitis: Without evidence of pancreatitis on imaging, however Lipase is elevated at 4569 upon admission, Alk phos = 132 She is not a heavy alcohol drinker and does not have evidence of gallstones Lipase and alk phos now back to normal -Continue lactated ringers but decrease to 125 mL's per hour -Continue NPO except meds with sips/chips - Pain management with dilaudid IV 0.5 mg Q3H prn, tylenol, and Toradol - Trend lipase and LFT with am labs - GI consulted - Pt will need an EUS 6wks after discharge as long as no other acute pancreatitis flares. (7) Madina's thyroiditis: - Followed with Dr. Palacios as outpatient Was on thyroid replacement hormone which made her feel worse and this has now been discontinued -Continue outpatient follow-up with endocrinology (8) Obesity (BMI 30-39.9): - BMI of 31.9, encourage diet and exercise as outpatient but has lost weight recently given all the ongoing GI issues as above - Pt does not watch diet or limit the amount of carbs/sugar. Would recommend this based on fatty liver as seen on imaging. (9) GERD (gastroesophageal reflux disease): -Start IV Pepcid (10) Hypothyroidism: - Follows with Dr. Graff as outpatient. As above (11) Depression: - Continue Wellbutrin, Prozac (12) Obstructive sleep apnea: - Continue CPAP at bedtime (13) CLOVIS (acute kidney injury): - Cr. elevated at 1.21 where baseline is typically 0.8-0.9. Now back to baseline with IV fluids Avoid nephrotoxins Renally dose medications as appropriate (14) Hyperglycemia: - Glucose mildly elevated at 126, last a1c completed this month was 5.6 - Monitor with am BMP, likely secondary to pancreatitis. (15) DVT prophylaxis: -teds, ambulatory CODE: FULL Dispo: Continued stay for persistent nausea, migraine, abdominal pain Subjective Had extensive conversation with mostly her as the patient was complaining of a bad migraine and was lying in bed somnolent but would answer some yes/no questions with her eyes closed. She had an ice pack over her forehead. Reported having right-sided throbbing headache with sensitivity to light and sound, positive nausea. Abdominal pain is improved from previous. Multiple loss loose stools though nursing reports she has having soft stools not watery. Discussed case extensively with gastroenterology today on the phone. I also reviewed her records all from last year and earlier this year reports that he really wants her gallbladder to be removed as he believes that is responsible for all of her ongoing symptoms. I tried to explain to them that I believe the enteritis is a separate issue from her possible chronic cholecystitis found on HIDA scan last year. She never really improved since her admission 3 weeks ago except for maybe 2 days where she was not having nausea and vomiting. Review of Systems Review of Systems: All systems reviewed & are unremarkable except as noted in HPI & below Physical Exam Constitutional: WD/WN, vitals as above (Lying in bed on her right side, does answer questions with her eyes closed, flat affect) + obese Eyes: PERRL, conjunctivae normal, anicteric sclerae ENMT: external ear and nose normal, oropharynx normal Neck: trachea midline, no thyromegaly Respiratory: normal respiratory effort, lungs clear to auscultation Cardiovascular: RRR, no murmur, no edema Chest (Breasts): Chest: normal inspection of chest Gastrointestinal (Abdomen): Inspection/Auscultation: abdomen normal to inspection and normal bowel sounds Percussion/Palpation: + abdomen tender (Mild epigastric pain and right upper quadrant pain as well as lower abdominal pain, no guarding) and abdomen soft; no guarding, abdomen not rigid, no hepatosplenomegaly and no hernia Musculoskeletal: Extremities: extremities normal to inspection; no cyanosis and no clubbing Skin: no rashes, warm and dry Neurologic: moves all extremities and awake; no focal motor deficits Psychiatric: Orientation: oriented to person and cooperative Speech: normal rate/rhythm/volume of speech Affect: + flat affect No facial droop, extraocular muscles intact, palate elevates normally, tongue in the midline, no dysarthria Full strength throughout Lymphatic: no lymphedema Results & Data ([facility]) Vital Signs (Past 12 Hours) Vital Signs Temp Pulse Resp BP Pulse Ox 06/04/19 07:00 36.6 C 59 L 14 121/76 97 Laboratory Results Labs reviewed Lipase down to normal, C. difficile negative, stool culture pending, urinalysis negative, alkaline phosphatase back to normal, LFTs otherwise negative, hemoglobin down to 12.9 from 17, creatinine down to 0.97 from 1.2 PG Care Time/CCT Total # of Minutes Spent Total Time Spent with Patient: Total time spent is greater than 50% in coordination of care (as documented) at patient's floor/unit and/or counseling patient: Coding Level of Care Code 94184 Subseq Hosp Care Lvl 3 Diagnoses Enteritis K52.9 Nausea & vomiting R11.2 Vomiting Intractability: non-intractable Vomiting type: unspecified Diarrhea R19.7 Migraine G43.909 Biliary dyskinesia K82.8 Acute pancreatitis K85.90 Madina's thyroiditis E06.3 Obesity (BMI 30-39.9) E66.9 GERD (gastroesophageal reflux disease) K21.9 Hypothyroidism E03.9 Depression F32.9 Obstructive sleep apnea G47.33 CLOVIS (acute kidney injury) N17.9 Hyperglycemia R73.9 DVT prophylaxis Z29.9 (1) Nausea & vomiting Vomiting Intractability: non-intractable Vomiting type: unspecified Qualified Code(s): R11.2 - Nausea with vomiting, unspecified
[2019-06-04] MEDS ORDERED: KETOROLAC 30 MG/ML VIAL IV ONE (14:57)
[2019-06-04] MEDS ORDERED: PROMETHAZINE HCL 12.5 MG in SODIUM CHLORIDE 0.9% 50 ML IV ONE (15:15)
[2019-06-04] MEDS: FAMOTIDINE 20 MG in SYRINGE 3 ML IV SCH ×2 (15:48→20:53)
--- NOTE | 2019-06-04 17:09 | Surgery Consultation ---
Date of Consultation June 04, 2019 Assessment & Plan (1) Biliary dyskinesia: Discussed that her symptoms are atypical of gallbladder disease. However, she does have a low EF on HIDA scan. Gallbladder removal in this setting does carry a significant chance of not having any effect on her symptoms. It is an option but one she should consider carefully after understanding the risks/ benefits. There is no indication for urgent surgical intervention - would recommend outpatient followup with surgery to discuss elective lap cholecystectomy. (2) Acute pancreatitis: Persistent/ recurrent. No evidence of gallstones on imaging. However, given repeated episodes, gallbladder removal is an option but as outlined above. Will sign off. Please have her f/u as an outpatient. History of Present Illness Reason for Consultation: gallbladder Requesting Physician: Antonieta Saavedra MD Attending Physician: Antonieta Saavedra MD History of Present Illness 49 yr old woman admitted with pancreatitis as well as CT finding of enteritis. She has been having a long history of mid abdominal pain (centered around umbilicus), typically postprandial but not definitively related to fatty foods, severe in intensity, associated with nausea and vomiting. No relieving factors. No radiation to right upper quadrant. This has been going on since July of 2018 but has been increasing in both severity and frequency. She is followed by Dr. Duong and had a negative GB ultrasound but HIDA scan showing EF of 19%. More recently, pain worsened and she was found to have elevated lipase. CT also showed signs of enteritis. Remaining lft's were normal. Admitted for pain control. She notes her family has a long history of gallbladder disease and they have all gotten better with gallbladder removal. She was admitted for the same symptoms (pancreatitis/ enteritis) 05/14/-05/16. Allergies Allergy/AdvReac Type Severity Reaction Status Date / Time statin Allergy Mild myalgias Uncoded 06/03/19 14:03 Home Medications Home Medications Medication Instructions Recorded Confirmed Type furosemide 40 mg PO QAM 07/22/18 06/03/19 History cholecalciferol (vitamin D3) 125 5,000 units PO QAM tab 11/24/18 06/03/19 History mcg (5,000 unit) tablet loratadine 5 mg-pseudoephedrine ER 1 tab PO QAM tab 11/24/18 06/03/19 History 120 mg tablet,extended release,12hr fluoxetine 10 mg capsule 10 mg PO QAM 04/21/19 06/03/19 History diclofenac sodium 1 % TOPICAL QID 05/14/19 06/03/19 History multivitamin 1 tab PO QAM 05/14/19 06/03/19 History bupropion HCl 300 mg 24 hr tablet, 300 mg PO QAM 05/23/19 06/03/19 History extended release diphenhydramine 25 1 tab PO HS tab 05/23/19 06/03/19 History mg-acetaminophen 500 mg tablet famotidine [Pepcid AC] 20 mg PO QAM 06/03/19 06/03/19 History Patient History Medical History Aching pain Biliary dyskinesia Depression GERD (gastroesophageal reflux disease) History of colon polyps Hyperlipidemia no meds Hypothyroidism Migraine Migraines Nausea and vomiting after administration of anesthetic agent Obstructive sleep apnea Sleep apnea cpap Surgical History History of bilateral tubal ligation History of colonoscopy History of dilatation and curettage History of endometrial ablation History of endoscopic sinus surgery History of HIDA scan Negative study 08/17/2018 History of hysterectomy History of wisdom tooth extraction Family History Father Family history of reaction to anesthesia nausea and vomiting Family history of diabetes mellitus Family hx of colon cancer Colorectal cancer Hypertension Mother Family history of diabetes mellitus Grandfather Stroke Other Diabetes Prostate cancer Social History Preferred Language: Vietnamese Communication Ability: Effective Carpenter Repair Required: No Beliefs That Will Affect Care: None marital status: Current Living Situation: Family Other Information That Helps Us Care for You: No Feels Safe at Home: Yes Safety Concerns: Feels Safe At This Time Smoking Status: Former smoker Do You Dip or Chew Tobacco: No ; Second Hand Exposure: No ; Tobacco Cessation Education Requested by Patient: No Hx Alcohol Use: Yes Alcohol type: beer, wine and hard liquor Hx Substance Use: No Review of Systems Review of Systems: All systems reviewed & are unremarkable except as noted in HPI & below Physical Exam Constitutional: WD/WN, vitals as above Eyes: PERRL, conjunctivae normal, anicteric sclerae Neck: trachea midline, no thyromegaly Respiratory: normal respiratory effort, lungs clear to auscultation Cardiovascular: RRR, no murmur, no edema Gastrointestinal (Abdomen): Inspection/Auscultation: abdomen normal to inspection and normal bowel sounds; abdomen not distended Percussion/Palpation: + abdomen tender (mid epigastrium) and abdomen soft; no guarding Neurologic: moves all extremities; no focal motor deficits Psychiatric: A+Ox3, euthymic affect Results & Data Vital Signs (Past 12 Hours) Vital Signs Temp Pulse Resp BP Pulse Ox 06/04/19 15:07 36.4 C L 51 L 17 111/73 98 06/04/19 07:00 36.6 C 59 L 14 121/76 97 Laboratory Results Abnormal lab results 06/04/19 06/04/19 Range/Units 06:29 06:29 RBC 4.18 L (4.2-5.4) M/uL Chloride 109 H (98-107) mmol/L Calcium 8.4 L D (8.5-10.1) mg/dl Total Protein 5.8 L D (6.4-8.2) gm/dl Albumin 2.9 L (3.4-5.0) gm/dl Diagnostic Findings CT scan abd/ pelvis 06/03/2019 1. Wall thickening is again noted involving multiple loops of small bowel with perienteric stranding and interloop edema along with both small and large bowel air-fluid levels. No transition point identified to suggest obstruction. Findings are suggestive of enteritis with diarrheal illness, likely infectious or inflammatory. 2. No pneumatosis or pneumoperitoneum. 3. No CT evidence of acute pancreatitis. 4. Hepatomegaly with hepatic steatosis. 5. Fluid-filled appendix is likely secondary to the aforementioned colonic findings. 6. Trace ascites. RUQ U/S normal 06/03/2019 (1) Acute pancreatitis Acute pancreatitis complication: unspecified Pancreatitis type: unspecified pancreatitis type Qualified Code(s): K85.90 - Acute pancreatitis without necrosis or infection, unspecified
--- NOTE | 2019-06-04 17:55 | Gastroenterology Progress Note ---
Date of Service June 04, 2019 Supervising Physician Co-Signing Physician Notes 49 yo fm admitted with pancreatitis based on labs and abdominal pain. Appears to have been being followed by Tam since 09/19 as an outpatient after transferring her care from [facility] prior to that. She appears on review of records to have had longstanding issues with diarrhea. Prior egd with duodenal biopsies were negative for celiac therefore no serologic workup was done. Prior egd and colonsocopy were not revealing for ibd as a source for her enteritis. She has had a recent imaging mid 05/[address] imaging showing enteritis and again currently. Given the recent testing + for ecoli, suspect this enteritis is infectious in nature. I don't see a clear link between the enteritis and pancreatitis. Clinically pancreatitis appears to be resolving with IV fluids, surgical input was requested and no plans for urgent surgical evaluation- there is no current clinical evidence for cholecystitis, outpt elective cholecystectomy could be considered. For now, would opt for continued IV fluids resuscitation given enteritis and resolving pancreatitis. Likely enteritis may take an additional 4 weeks to fully resolve, if viral or bacterial is the cause- it can sometimes take 6-8 weeks for complete resolution which may still be contributing to some of her symptoms of nausea/abdominal pain, diarrhea. If feeling better tomorrow, consider liquid diet if there is still no continued surgical plan. Outpatient EUS likely in 4-6 weeks. Subjective The patient was seen however had just received medications and was somnolent, slightly arousable but sleepy and did not voice any complaints to me. No family present at the bedside. Discussed her case with the nurse- who reported she had gotten improvement after med cocktail given earlier this afternoon for her migraine. Review of Systems Review of Systems: All systems reviewed & are unremarkable except as noted in HPI & below Physical Exam Physical Exam: Well nourished obese female in nad Constitutional: WD/WN, vitals as above Gastrointestinal (Abdomen): normal bowel sounds, soft, nontender, no hepatosplenomegaly Skin: no rashes, warm and dry Results & Data Vital Signs (Past 12 Hours) Vital Signs Temp Pulse Resp BP Pulse Ox 06/04/19 15:07 36.4 C L 51 L 17 111/73 98 06/04/19 07:00 36.6 C 59 L 14 121/76 97 Labs all reviewed Lipase has normalized Essentially normal lft's other than minor alk phos elevation CT reviewed- no evidence of pancreatitis but enterititis
[2019-06-04] MEDS: COLESTIPOL HCL 1 GM TAB PO SCH (20:56)
[2019-06-05] MEDS ORDERED: Nursing to Pharmacy Communication ONE (01:00)
[2019-06-05] MEDS: LACTATED RINGER'S 1,000 ML IV SCH ×4 (01:30→13:23)
[2019-06-05 06:47] LABS: Hematocrit (blood only) 37.7 % (37-47); Hemoglobin 12.7 g/dL (12.0-16.0); Mean Corpuscular Hemoglobin 30.4 pg (25-34); Mean Corpuscular Hgb Conc 33.7 g/dL (32-36); Mean Corpuscular Volume 90.2 fL (80-100); Mean Platelet Volume 9.3 fL (7.4-10.4); Platelet Count 239 K/uL (130-400); RDW Coefficient of Variation 12.7 % (11.5-14.5); RDW Standard Deviation 42.2 fL (36.4-46.3); Red Blood Count 4.18 M/uL (4.2-5.4); White Blood Count 6.15 K/uL (4.8-10.8)
[2019-06-05 07:19] LABS: Alanine Aminotransferase 33 U/L (12-78); Albumin Level 3.2 gm/dl (3.4-5.0); BUN Creatinine Ratio 9.3 (10-20); Blood Urea Nitrogen 9 mg/dl (7-18); Calcium 8.7 mg/dl (8.5-10.1); Carbon Dioxide 29 mmol/L (21-32); Chloride 110 mmol/L (98-107); Creatinine Clr Calc Pharmacy 83.7 ml/min; Est GFR (African American) 75.3; Glucose 76 mg/dl (70-99); Lipase 110 U/L (73-393); Potassium 3.5 mmol/L (3.5-5.1); Sodium 144 mmol/L (136-145)
[2019-06-05 07:23] LABS: Albumin Globulin Ratio 1.1 (0.9-2); Alkaline Phosphatase 89 U/L (45-117); Aspartate Aminotransferase 17 U/L (15-37); Bilirubin Direct < 0.1 mg/dl (0-0.2); Bilirubin,Total 0.3 mg/dl (0.2-1); Phosphorus 3.8 mg/dl (2.5-4.9); Total Protein 6.2 gm/dl (6.4-8.2)
[2019-06-05] MEDS: COLESTIPOL HCL 1 GM TAB PO SCH ×2 (09:28→21:08)
[2019-06-05] MEDS: BuPROPion XL 300 MG TABCR PO SCH (09:28)
[2019-06-05] MEDS: FLUOXETINE HCL 10 MG CAP PO SCH (09:29)
[2019-06-05] MEDS: FAMOTIDINE 20 MG in SYRINGE 3 ML IV SCH ×2 (09:30→21:08)
--- NOTE | 2019-06-05 10:04 | History & Physical Bridge Note ---
Date of Service June 05, 2019 History & Physical Bridge Note Labs appear stable Mild clinical improvement Advance diet as tolerated slowly- clears today if pt is agreebale. No plans for surgical intervention Outpt EUS will be scheduled.
[2019-06-05] MEDS ORDERED: KETOROLAC 30 MG/ML VIAL IV PRN (13:19)
[2019-06-05] MEDS ORDERED: PROMETHAZINE HCL 12.5 MG in SODIUM CHLORIDE 0.9% 50 ML IV PRN (13:19)
--- NOTE | 2019-06-05 13:22 | Hospitalist Progress Note ---
Date of Service June 05, 2019 Assessment & Plan (1) Enteritis: With small bowel thickening persistent on CT scan similar to 3 weeks ago Stool culture from previous negative and again repeated here and is pending but no growth so far C. difficile is negative Likely viral gastroenteritis as per my discussion with GI, persistent issues Lytes and renal function all remain normal, continues on IVFs Her CT from 1 year ago with similar symptoms did not have any enteritis visualized at that time I do not feel this is related to her possible chronic cholecystitis and therefore a cholecystectomy at this time would not likely cure her symptoms from the enteritis i.e. N/V/D -Trial of colestipol to help with diarrhea is helping so far -GI consultation appreciated-thinks that enteritis may take several weeks to resolve especially on imaging -adv diet today to clears -continue IVFs (2) Nausea & vomiting: Ongoing for 5 to 6 weeks intermittently With enteritis on imaging as above Had similar episodes off and on in the last year, previous EGD without significant abnormality Now resolved -continue Phenergan, continue Zofran as needed Continue with IV fluid hydration and enteritis hopefully will resolve in the next few weeks follow BMP No evidence of renal failure (3) Diarrhea: Slowing down now with NPO status and started colestipol stool cx pending but were negative 2 weeks ago C. diff neg Could be related to gall bladder dysfunction as well as enteritis -continue colestipol (4) Migraine: Chronic, worsened here by caffeine deficiency--> now much improved with toradol and phenergan -give toradol, phenergan prn -continue pepcid to prevent gastritis given h/o such while receiving Pepcid (5) Acute pancreatitis: Without evidence of pancreatitis on imaging, however Lipase is elevated at 4569 upon admission, Alk phos = 132---> chemical pancreatitis She is not a heavy alcohol drinker and does not have evidence of gallstones --> lipase up due to enteritis and vomiting? Lipase and alk phos now back to normal Mild pancreatitis -Continue lactated ringers 125 mL's per hour -pain now resolved in epigastric region--> adv diet to clears - continue Pain management with dilaudid IV 0.5 mg Q3H prn (not taking), tylenol, and Toradol -no need to check repeat lipase - GI consulted - Pt will need an EUS 6wks after discharge (6) Biliary dyskinesia: HIDA from 2019 with 19% EF, indicates chronic biliary dysfunction, no acute cholecystitis then or now Family requesting Surgical consultation to see about elective bindu to see if would improve chronic issues with N/V--> appreciate consult--> no bindu at this time with acute enteritis, but should follow up in office to discuss elective lap bindu (7) Madina's thyroiditis: - Followed with Dr. Palacios as outpatient Was on thyroid replacement hormone which made her feel worse and this has now been discontinued -Continue outpatient follow-up with endocrinology (8) Obesity (BMI 30-39.9): - BMI of 33, encourage diet and exercise as outpatient but has lost weight recently given all the ongoing GI issues as above - Pt does not watch diet or limit the amount of carbs/sugar. Would recommend this based on fatty liver as seen on imaging. (9) GERD (gastroesophageal reflux disease): -continue IV Pepcid (10) Hypothyroidism: - Follows with Dr. Graff as outpatient. As above (11) Depression: - Continue Wellbutrin, Prozac (12) Obstructive sleep apnea: - Continue CPAP at bedtime (13) CLOVIS (acute kidney injury): - Cr. elevated at 1.21 where baseline is typically 0.8-0.9. Now back to baseline with IV fluids Avoid nephrotoxins Renally dose medications as appropriate (14) Hyperglycemia: - Glucose mildly elevated at 126, last a1c completed this month was 5.6 - Monitor with am BMP-none further, likely was secondary to pancreatitis. (15) DVT prophylaxis: -teds, ambulatory CODE: FULL Dispo: Continued stay for treatment of enteritis and migraine--> hopeful can be discharged tomorrow if diet can be advanced Subjective Much improved today overall. Her migraine was completely relieved yesterday after taking phenergan and toradol. Starting to have recurrence of migraine today but not nearly as bad-requesting more of the toradol and phenergan, WATSON 09/10 currently. Has had 2 loose stools today but abd pain is improved and now seems to only be in lower abd, intermittent, crampy in nature. No epigastric pain. Denies nausea or vomiting. Is wanting to try clear liquids. She is also c/o lower back pain that is midline and off to the right. She has had this now for about a month and it is constant, worse with walking and worse with palpation. Denies radiation of pain down legs, denies numbness/tingling or weakness in LEs. Again reviewed at length with pt and her about all results of studies, imaging, and what the plan is. Review of Systems Review of Systems: All systems reviewed & are unremarkable except as noted in HPI & below Physical Exam Constitutional: WD/WN, vitals as above + obese Eyes: + anicteric sclerae ENMT: external ear and nose normal, oropharynx normal Neck: trachea midline, no thyromegaly Respiratory: normal respiratory effort, lungs clear to auscultation Cardiovascular: RRR, no murmur, no edema Chest (Breasts): Chest: normal inspection of chest Gastrointestinal (Abdomen): Inspection/Auscultation: abdomen normal to inspection and normal bowel sounds Percussion/Palpation: + abdomen tender (+TTP suprapubic region w/o guarding or rebound) and abdomen soft; no guarding, abdomen not rigid, no hepatosplenomegaly and no hernia Musculoskeletal: Spine: + paraspinal tenderness (+TTP over right lumbar paraspinous muscles) Extremities: extremities normal to inspection; no cyanosis and no clubbing Skin: no rashes, warm and dry Neurologic: moves all extremities and awake; no focal motor deficits Psychiatric: Orientation: alert, oriented x 3 and cooperative Speech: normal rate/rhythm/volume of speech Affect: euthymic affect Lymphatic: no lymphedema Results & Data ([facility]) Vital Signs (Past 12 Hours) Vital Signs Temp Pulse Resp BP Pulse Ox 06/05/19 07:34 36.4 C L 58 L 16 108/70 95 Laboratory Results 06/05/19 06/05/19 Range/Units 05:56 05:56 WBC 6.15 (4.8-10.8) K/uL RBC 4.18 L (4.2-5.4) M/uL Hgb 12.7 (12.0-16.0) g/dL Hct 37.7 (37-47) % MCV 90.2 (80-100) fL MCH 30.4 (25-34) pg MCHC 33.7 (32-36) g/dL RDW Std Deviation 42.2 (36.4-46.3) fL RDW Coeff of Abhinav 12.7 (11.5-14.5) % Plt Count 239 (130-400) K/uL MPV 9.3 (7.4-10.4) fL Sodium 144 (136-145) mmol/L Potassium 3.5 (3.5-5.1) mmol/L Chloride 110 H (98-107) mmol/L Carbon Dioxide 29 (21-32) mmol/L Anion Gap 5.0 (3-11) BUN 9 (7-18) mg/dl Creatinine 1.02 (0.6-1.2) mg/dl Est Cr Clr Drug Dosing 83.7 ml/min Est GFR ( Amer) 75.3 Est GFR (Non-Af Amer) 65.0 BUN/Creatinine Ratio 9.3 L (10-20) Glucose 76 (70-99) mg/dl Calcium 8.7 (8.5-10.1) mg/dl Phosphorus 3.8 (2.5-4.9) mg/dl Magnesium 2.0 (1.8-2.4) mg/dl Total Bilirubin 0.3 (0.2-1) mg/dl Direct Bilirubin < 0.1 (0-0.2) mg/dl AST 17 (15-37) U/L ALT 33 (12-78) U/L Alkaline Phosphatase 89 (45-117) U/L Total Protein 6.2 L (6.4-8.2) gm/dl Albumin 3.2 L (3.4-5.0) gm/dl Globulin 3.0 (2.5-4.0) gm/dl Albumin/Globulin Ratio 1.1 (0.9-2) Lipase 110 (73-393) U/L PG Care Time/CCT Total # of Minutes Spent Total Time Spent with Patient: Total time spent is greater than 50% in coordination of care (as documented) at patient's floor/unit and/or counseling patient: Coding Level of Care Code 37122 Subseq Hosp Care Lvl 3 Diagnoses Enteritis K52.9 Nausea & vomiting R11.2 Vomiting Intractability: non-intractable Vomiting type: unspecified Diarrhea R19.7 Migraine G43.909 Acute pancreatitis K85.90 Biliary dyskinesia K82.8 Madina's thyroiditis E06.3 Obesity (BMI 30-39.9) E66.9 GERD (gastroesophageal reflux disease) K21.9 Hypothyroidism E03.9 Depression F32.9 Obstructive sleep apnea G47.33 CLOVIS (acute kidney injury) N17.9 Hyperglycemia R73.9 DVT prophylaxis Z29.9 (1) Nausea & vomiting Vomiting Intractability: non-intractable Vomiting type: unspecified Qualified Code(s): R11.2 - Nausea with vomiting, unspecified
[2019-06-05] MEDS: LIDOCAINE 5% 1 PATCH TD SCH (14:17)
[2019-06-06 05:51] LABS: Hematocrit (blood only) 38.3 % (37-47); Hemoglobin 13.4 g/dL (12.0-16.0); Mean Corpuscular Hemoglobin 31.2 pg (25-34); Mean Corpuscular Volume 89.1 fL (80-100); Mean Platelet Volume 9.1 fL (7.4-10.4); Platelet Count 250 K/uL (130-400); RDW Coefficient of Variation 12.5 % (11.5-14.5); RDW Standard Deviation 40.2 fL (36.4-46.3); White Blood Count 7.49 K/uL (4.8-10.8)
[2019-06-06 06:20] LABS: Albumin Level 3.5 gm/dl (3.4-5.0); BUN Creatinine Ratio 8.7 (10-20); Calcium 8.5 mg/dl (8.5-10.1); Creatinine Clr Calc Pharmacy 85.4 ml/min; Est GFR (African American) 77.2; Est GFR (Non-African American) 66.6; Potassium 3.3 mmol/L (3.5-5.1)
[2019-06-06 06:22] LABS: Albumin Globulin Ratio 1.1 (0.9-2); Bilirubin,Total 0.3 mg/dl (0.2-1); Globulin 3.2 gm/dl (2.5-4.0); Phosphorus 4.3 mg/dl (2.5-4.9); Total Protein 6.7 gm/dl (6.4-8.2)
[2019-06-06] MEDS: BuPROPion XL 300 MG TABCR PO SCH (08:26)
[2019-06-06] MEDS: COLESTIPOL HCL 1 GM TAB PO SCH (08:26)
[2019-06-06] MEDS: FLUOXETINE HCL 10 MG CAP PO SCH (08:26)
[2019-06-06] MEDS: LIDOCAINE 5% 1 PATCH TD SCH (08:27)
[2019-06-06] MEDS: FAMOTIDINE 20 MG in SYRINGE 3 ML IV SCH (08:29)
--- NOTE | 2019-06-06 15:28 | Hospitalist Progress Note ---
Date of Service June 06, 2019 Assessment & Plan (1) Enteritis: Resolved with symptomatic therapy. Tolerates p.o. very well. Eager to go home. Follow-up with PCP within 7 days. (2) Nausea & vomiting: Resolved (3) Diarrhea: Resolved -continue colestipol (4) Migraine: Resolved, continue home medicine (5) Acute pancreatitis: Follow-up with pancreas ultrasound within 6 weeks after discharge. Follow-up with GI. (6) Biliary dyskinesia: HIDA from 2019 with 19% EF, indicates chronic biliary dysfunction, no acute cholecystitis then or now Family requesting Surgical consultation to see about elective bindu to see if would improve chronic issues with N/V--> appreciate consult--> no bindu at this time with acute enteritis, but should follow up in office to discuss elective lap bindu (7) Madina's thyroiditis: - Followed with Dr. Palacios as outpatient Was on thyroid replacement hormone which made her feel worse and this has now been discontinued -Continue outpatient follow-up with endocrinology (8) Obesity (BMI 30-39.9): - BMI of 33, encourage diet and exercise as outpatient but has lost weight recently given all the ongoing GI issues as above - Pt does not watch diet or limit the amount of carbs/sugar. Would recommend this based on fatty liver as seen on imaging. (9) GERD (gastroesophageal reflux disease): -continue IV Pepcid (10) Hypothyroidism: - Follows with Dr. Graff as outpatient. As above (11) Depression: - Continue Wellbutrin, Prozac (12) Obstructive sleep apnea: - Continue CPAP at bedtime (13) CLOVIS (acute kidney injury): - Cr. elevated at 1.21 where baseline is typically 0.8-0.9. Now back to baseline with IV fluids Avoid nephrotoxins Renally dose medications as appropriate (14) Hyperglycemia: - Glucose mildly elevated at 126, last a1c completed this month was 5.6 - Monitor with am BMP-none further, likely was secondary to pancreatitis. (15) DVT prophylaxis: -teds, ambulatory CODE: FULL Dispo: Continued stay for treatment of enteritis and migraine--> hopeful can be discharged tomorrow if diet can be advanced Subjective Patient is seen and examined at the bedside. She feels much better. She is able to tolerate all her food. Patient denies fever, chills, chest pain, shortness of breath, frequency, urgency. She requested to be discharged home. Review of Systems Review of Systems: All systems reviewed & are unremarkable except as noted in HPI & below Physical Exam Constitutional: WD/WN, vitals as above + obese Eyes: PERRL, conjunctivae normal, anicteric sclerae + anicteric sclerae ENMT: external ear and nose normal, oropharynx normal Neck: trachea midline, no thyromegaly Respiratory: normal respiratory effort, lungs clear to auscultation Cardiovascular: RRR, no murmur, no edema Chest (Breasts): Chest: normal inspection of chest Gastrointestinal (Abdomen): normal bowel sounds, soft, nontender, no hepatosplenomegaly Inspection/Auscultation: abdomen normal to inspection and normal bowel sounds; abdomen not distended Percussion/Palpation: + abdomen tender (+TTP suprapubic region w/o guarding or rebound) and abdomen soft; no guarding, abdomen not rigid, no hepatosplenomegaly, no hernia and no ascites Musculoskeletal: Spine: + paraspinal tenderness (+TTP over right lumbar paraspinous muscles) Extremities: extremities normal to inspection; no cyanosis and no clubbing Skin: no rashes, warm and dry no jaundice Neurologic: PERRL, EOMI, accommodation nl, no face palsy, no dysarthria moves all extremities and awake; no focal motor deficits Psychiatric: A+Ox3, euthymic affect Orientation: alert, oriented x 3, oriented to person and cooperative Speech: normal rate/rhythm/volume of speech Affect: euthymic affect and + flat affect Lymphatic: no cervical or axillary lymphadenopathy no lymphedema Results & Data ([facility]) Vital Signs (Past 12 Hours) Vital Signs Temp Pulse Resp BP Pulse Ox 06/06/19 07:36 36.4 C L 83 16 124/77 96 PG Care Time/CCT Total # of Minutes Spent Total Time Spent with Patient: Total time spent is greater than 50% in coordination of care (as documented) at patient's floor/unit and/or counseling patient: Coding Level of Care Code 09505 Subseq Hosp Care Lvl 3 Diagnoses Enteritis K52.9 Nausea & vomiting R11.2 Vomiting Intractability: non-intractable Vomiting type: unspecified Diarrhea R19.7 Migraine G43.909 Acute pancreatitis K85.90 Biliary dyskinesia K82.8 Madina's thyroiditis E06.3 Obesity (BMI 30-39.9) E66.9 GERD (gastroesophageal reflux disease) K21.9 Hypothyroidism E03.9 Depression F32.9 Obstructive sleep apnea G47.33 CLOVIS (acute kidney injury) N17.9 Hyperglycemia R73.9 DVT prophylaxis Z29.9 (1) Nausea & vomiting Vomiting Intractability: non-intractable Vomiting type: unspecified Qualified Code(s): R11.2 - Nausea with vomiting, unspecified
[2019-06-06] MEDS ORDERED: POTASSIUM CHLORIDE 20 MEQ TABCR PO ONE (15:45)
--- NOTE | 2019-06-06 18:45 | Discharge Summary ---
Date of Service June 06, 2019 Admission HPI Per Admitting Provider This is a 49 yo F with PMHx of hyperlipidemia, fatty liver, hypothyroidism, GERD, CAMRON on cpap, Madina's thyroiditis, hypothyroidism and remote history of smoking who presents with similar symptoms from most recent admission on 05/14/2019 where she was diagnosed with acute pancreatitis as well as a possible bowel enteritis. The patient ate breakfast this morning(toast) and then approximately 30 minutes later developed nausea, vomiting, significant upper abdominal pain, and felt that she should come to the ER. She admits to having diarrhea, ~4-6 BMs daily, but reports this is been going on even prior to her last admission, it has not improved since she left the hospital last time. She denies BRBPR, no hematochezia, dark or tarry stools. She eats a wide variety of foods in her diet and does not limit fatty or sugary foods. She also notes her menopausal hot flashes have seemed to make her abdominal complaints worse. Whenever she has a hot flash, it is followed by abdominal cramping and pain. Her spouse is present with her at bedside and reports that he would like [facility] GI team to see the patient during this admission as he has had good experiences with [facility]'s team in the past. The patient had a HIDA scan conducted last August 2018 which showed reduced ejection fraction equal to 19%. Gallbladder ultrasound conducted today is negative for choledocholithiasis, she has been taking all her regularly scheduled medications as directed, without any recent changes. Lipase is elevated at 4569 upon admission, Alk phos = 132, Cr. elevated at 1.21 where baseline is typically 0.8-0.9. Glucose mildly elevated at 126. Principal Diagnosis none Discharge Exam Constitutional WD/WN, vitals as above + obese Eyes PERRL, conjunctivae normal, anicteric sclerae + anicteric sclerae ENMT external ear and nose normal, oropharynx normal Neck trachea midline, no thyromegaly Respiratory normal respiratory effort, lungs clear to auscultation Cardiovascular RRR, no murmur, no edema Chest (Breasts) Chest: normal inspection of chest Gastrointestinal (Abdomen) normal bowel sounds, soft, nontender, no hepatosplenomegaly Inspection/Auscultation: abdomen normal to inspection and normal bowel sounds; abdomen not distended Percussion/Palpation: + abdomen tender (+TTP suprapubic region w/o guarding or rebound) and abdomen soft; no guarding, abdomen not rigid, no hepatosplenomegaly, no hernia and no ascites Musculoskeletal Spine: + paraspinal tenderness (+TTP over right lumbar paraspinous muscles) Extremities: extremities normal to inspection; no cyanosis and no clubbing Skin no rashes, warm and dry no jaundice Neurologic PERRL, EOMI, accommodation nl, no face palsy, no dysarthria moves all extremities and awake; no focal motor deficits Psychiatric A+Ox3, euthymic affect Orientation: alert, oriented x 3, oriented to person and cooperative Speech: normal rate/rhythm/volume of speech Affect: euthymic affect and + flat affect Lymphatic no cervical or axillary lymphadenopathy no lymphedema Discharge Data Allergies Allergy/AdvReac Type Severity Reaction Status Date / Time statin Allergy Mild myalgias Uncoded 06/03/19 14:03 Consultations 06/03/19 13:02 ED Decision to Admit Stat 06/03/19 15:03 Consult Case Management - Discharge Planning Routine Consult Gastroenterology Routine 06/04/19 14:26 Consult General Surgery Routine Ordered Studies 06/03/19 12:07 US gallbladder Stat 06/03/19 15:01 CT abd pelvis IV con only Routine Hospital Course (1) Enteritis: Resolved with symptomatic therapy. Tolerates p.o. very well. Eager to go home. Follow-up with PCP within 7 days. (2) Nausea & vomiting: Resolved (3) Diarrhea: Resolved -continue colestipol (4) Migraine: Resolved, continue home medicine (5) Acute pancreatitis: Follow-up with pancreas ultrasound within 6 weeks after discharge. Follow-up with GI. (6) Biliary dyskinesia: HIDA from 2019 with 19% EF, indicates chronic biliary dysfunction, no acute cholecystitis then or now Family requesting Surgical consultation to see about elective bindu to see if would improve chronic issues with N/V--> appreciate consult--> no bindu at this time with acute enteritis, but should follow up in office to discuss elective lap bindu (7) Madina's thyroiditis: - Followed with Dr. Palacios as outpatient Was on thyroid replacement hormone which made her feel worse and this has now been discontinued -Continue outpatient follow-up with endocrinology (8) Obesity (BMI 30-39.9): - BMI of 33, encourage diet and exercise as outpatient but has lost weight recently given all the ongoing GI issues as above - Pt does not watch diet or limit the amount of carbs/sugar. Would recommend this based on fatty liver as seen on imaging. (9) GERD (gastroesophageal reflux disease): -continue IV Pepcid (10) Hypothyroidism: - Follows with Dr. Graff as outpatient. As above (11) Depression: - Continue Wellbutrin, Prozac (12) Obstructive sleep apnea: - Continue CPAP at bedtime (13) CLOVIS (acute kidney injury): - Cr. elevated at 1.21 where baseline is typically 0.8-0.9. Now back to baseline with IV fluids Avoid nephrotoxins Renally dose medications as appropriate (14) Hyperglycemia: - Glucose mildly elevated at 126, last a1c completed this month was 5.6 - Monitor with am BMP-none further, likely was secondary to pancreatitis. (15) DVT prophylaxis: -teds, ambulatory CODE: FULL Dispo: Continued stay for treatment of enteritis and migraine--> hopeful can be discharged tomorrow if diet can be advanced Total Time Total Time Spent Total Time Spent (In Minutes): over 30 min Discharge Plan Discharge Items Patient Disposition: Home - Self-Care Reason For Visit: PANCREATITIS,NAUSEA,VOMITING Discharge Diagnosis: Acute pancreatitis, gastroenteritis Condition on Discharge: Good Activity: Resume your previous activity Non-emergency contact: Primary Care Provider Call non-emergency contact if: you have any medication questions, your symptoms worsen, your pain is not controlled, your pain is worsening, your pain is concerning for you and your temperature is above 101 Follow-up/Referrals: Radha Ray [Primary Care Provider] - Diet: Low Fat Addtl Attending Provider Instructions: Follow-up with primary care physician within 7 days. Avoid spicy and acidic food. Be started a new medicine called colestipol or Colestid 1 g p.o. twice a day for better digestion. Take medication before the meal. Follow-up with ultrasound of the pancreas within a 6-week after discharge and schedule appointment with gastroenterology for follow-up. 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 Hypothyroidism: Follows with Dr. 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 Pending Studies at Discharge: No Stand-Alone Forms: Call Back Authorization, [facility] Campaign Monitor, Smoking Cessation Medications and DC Order Prescriptions: New colestipol [Colestid] 1 gram Tablet 1 g PO BID@1000,2200 Qty: 60 RF: 0 Continued bupropion HCl 300 mg tablet extended release 24 hr 300 mg PO QAM RF: 0 diphenhydramine-acetaminophen [Tylenol PM Extra Strength] 25-500 mg tablet 1 tab PO HS RF: 0 cholecalciferol (vitamin D3) 5,000 unit tablet 5,000 units PO QAM RF: 0 loratadine-pseudoephedrine 5-120 mg tablet extended release 12 hr 1 tab PO QAM RF: 0 fluoxetine [Prozac] 10 mg capsule 10 mg PO QAM RF: 0 furosemide 40 mg tablet 40 mg PO QAM RF: 0 multivitamin Tablet 1 tab PO QAM RF: 0 diclofenac sodium 1 % gel 1 % TOPICAL QID RF: 0 famotidine [Pepcid AC] 20 mg Tablet 20 mg PO QAM RF: 0 Discharge Orders: Discharge Order (Routine); Ordered 06/06/19 Ordered By: Antonio Briones/Other Patient Handouts: Colestipol Hydrochloride Micronized Oral tablet Admission Data Admit Date/Time: 06/03/19 13:58 Attending Provider: Antonio Valle Admit Provider: Ursula Ho Primary Care Provider: Radha Ray Other Providers: Nancie Cardenas ; Guanako Giraldo ; Virginia Griffith Other Interventions: Discharge Summary Assessment (RN) Last Done: 06/06/19 16:34 DC Date/Time DO NOT enter until pt leaves facility: 06/06/19 17:00 Coding Level of Care Code D/C Day Management >30 mins Diagnoses Enteritis K52.9 Nausea & vomiting R11.2 Vomiting Intractability: non-intractable Vomiting type: unspecified Diarrhea R19.7 Migraine G43.909 Acute pancreatitis K85.90 Biliary dyskinesia K82.8 Madina's thyroiditis E06.3 Obesity (BMI 30-39.9) E66.9 GERD (gastroesophageal reflux disease) K21.9 Hypothyroidism E03.9 Depression F32.9 Obstructive sleep apnea G47.33 CLOVIS (acute kidney injury) N17.9 Hyperglycemia R73.9 DVT prophylaxis Z29.9
== END 2019-06-06 17:00 | disposition home or self-care (01) | DRG 391 ==
LOC: ED 11:34 → 3N 13:58 → SUATTDRO 13:58 → 3N 14:43